=== PATIENT | male | born 1990 | race Caucasian/White ===

== ENCOUNTER 2018-12-15 12:16 | Inpatient (IN) | payer OTHER ==
--- NOTE | 2018-12-15 12:31 | ED PDOC ---
Arrival/HPI - General Chief Complaint: Weakness/Neurological Deficit Historian: EMS - History of Present Illness Narrative History of Present Illness (Text): 12/15/18 12:24 28 year old M with h/o of Factor V Leiden deficiency (Eliquis), PE, DVT presents via EMS complaining of left arm weakness, left facial droop, drooling and slurred speech 20 minutes prior to arrival. Per EMS, patient mentioned "feeling funny" for the past week. Per the patient's mother, the patient has similar presentation last week at [facility] where CTH was unremarkable and he was discharged and advised to continue taking his Eliquis as prescribed. PCP: Dr. Lopez Time/Duration: Prior to Arrival Symptom Onset: Sudden Symptom Course: Unchanged Activities at Onset: Light Context: Home Past Medical History - Provider Review Nursing Documentation Reviewed: Yes - Travel History Have you recently traveled outside [place] w/in the past 3 mons?: No - Infectious Disease Hx of Infectious Diseases: None - Tetanus Immunization Tetanus Immunization: Unknown - Hematological/Oncological Other/Comment: DVT left leg, Factor V. - Musculoskeletal/Rheumatological Hx Falls: No - Psychiatric Hx Depression: No Hx Emotional Abuse: No Hx Physical Abuse: No Hx Substance Use: (Smokes marijuana occasionaly) - Past Surgical History Past Surgical History: No Previous - Surgical History Hx Tonsillectomy: Yes - Anesthesia Hx Anesthesia: Yes Hx Anesthesia Reactions: No Hx Malignant Hyperthermia: No - Suicidal Assessment Feels Threatened In Home Enviroment: No Family/Social History - Physician Review Nursing Documentation Reviewed: Yes Family/Social History: Unknown Family HX Smoking Status: Current Some Days Smoker Hx Alcohol Use: Yes (Socially) Hx Substance Use: (Smokes marijuana occasionaly) Substance used: CANNABIS Hx Substance Use Treatment: No Allergies/Home Meds Allergies/Adverse Reactions: Allergies Penicillins Allergy (Verified 11/10/15 04:38) RASH Home Medications: Home Meds Medication Instructions Recorded Confirmed Apixaban [Eliquis] 2.5 mg PO BID 12/15/18 12/15/18 Review of Systems - Physician Review All systems were reviewed & negative as marked: Yes - Review of Systems Systems not reviewed;Unavailable: Acuity of Condition Constitutional: absent: Fevers ENT: absent: Sore Throat, Rhinorrhea Respiratory: absent: SOB, Cough, Wheezing Cardiovascular: absent: Chest Pain Gastrointestinal: absent: Abdominal Pain, Diarrhea, Nausea, Vomiting Genitourinary Male: absent: Dysuria Musculoskeletal: Other (left arm weakness) Neurological: Facial Droop (left). absent: Headache Physical Exam Vital Signs Reviewed: Yes Temperature: Afebrile Blood Pressure: Normal Pulse: Tachycardic Respiratory Rate: Normal Appearance: Positive for: Well-Appearing, Non-Toxic, Comfortable Pain Distress: Mild Mental Status: Positive for: Alert and Oriented X 3 Finger Stick Blood Glucose: 95 - Systems Exam Head: Present: Atraumatic, Normocephalic Pupils: Present: PERRL Extroacular Muscles: Present: EOMI Conjunctiva: Present: Normal Mouth: Present: Moist Mucous Membranes Neck: Present: Normal Range of Motion Respiratory/Chest: Present: Clear to Auscultation, Good Air Exchange. No: Respiratory Distress, Accessory Muscle Use Cardiovascular: Present: Regular Rate and Rhythm, Normal S1, S2. No: Murmurs Abdomen: No: Tenderness, Distention, Peritoneal Signs Back: Present: Normal Inspection Upper Extremity: Present: Neurovascularly Intact. No: Cyanosis, Edema Lower Extremity: Present: Normal Inspection, Normal ROM. No: Edema Neurological: Present: GCS=15, Other (able to wrinkle both sides of forehead). No: Speech Normal (slurred speech w/drooling noted towards left side of mouth), Motor Func Grossly Intact (4/5 strength in RUE, 1/5 strength in LUE, RLE & LLE 5/5 motor strength) Skin: Present: Warm, Dry, Normal Color. No: Rashes Psychiatric: Present: Alert, Oriented x 3, Normal Insight, Normal Concentration Medical Decision Making ED Course and Treatment: 12/15/18 12:31 Impression: 28 year old M presents via EMS complaining of left arm weakness, left facial droop w/drool and slurred speech prior to arrival. EMS reports arrival 20 mins prior to symptoms and blood glucose level of 99 on field. Per EMS, patient mentioned "feeling funny" x1week. No current somatic complaints at the moment. NIHSS: 7 tPA Eligible: NO Plan: -- Labs --CTA --CTH --IVF --EKG --UA --Aspirin --MRI --Echo w/ bubble study --Zofran --Stroke team consult -- Reassess and disposition Prior Visits: Notes and results from previous visits were reviewed. Patient was last seen in the emergency department on Progress Notes: 12/15/18 12:40 Code Stroke called. CTH reviewed with visualized area of ischemia seen on R frontal temporal region. Discussed case with Dr. Booth(neurology) who states patient is NOT a candidate for tPA. She requests for CTA to be performed. 12/15/18 14:[address] Lopez(PCP) who accepts patient under his care. - Critical Care Critical Care Minutes: 60 minutes - Lab Interpretations Lab Results: 12/15/18 12:42 12/15/18 12:42 Lab Results 12/15/18 14:11: Blood Type Confirm B POSITIVE 12/15/18 13:38: Blood Type B POSITIVE, Antibody Screen Negative, BBK History Checked No verified bt 12/15/18 12:42: Sodium 142, Potassium 4.3, Chloride 104, Carbon Dioxide 25, Anion Gap 17, BUN 15, Creatinine 0.8, Est GFR ( Amer) > 60, Est GFR (Non- Af Amer) > 60, Random Glucose 101, Calcium 9.5, Total Bilirubin 0.9, AST 32, ALT 45, Alkaline Phosphatase 83, Troponin I < 0.01, NT-Pro-B Natriuret Pep 55.4, Total Protein 8.2, Albumin 4.6, Globulin 3.5, Albumin/Globulin Ratio 1.3, Triglycerides 127, Cholesterol 161, LDL Cholesterol Direct 71, HDL Cholesterol 50 12/15/18 12:42: PT 15.2 H, INR 1.35, APTT 44.4 H 12/15/18 12:42: WBC 7.1, RBC 5.93, Hgb 15.5, Hct 46.9, MCV 79.1 L, MCH 26.1, MCHC 33.0, RDW 13.4, Plt Count 190, MPV 10.4, Neut % (Auto) 52.2, Lymph % (Auto) 38.0 H, Benson % (Auto) 5.7, Eos % (Auto) 3.8, Baso % (Auto) 0.3, Lymph # (Auto) 2.7, Benson # (Auto) 0.4, Eos # (Auto) 0.3, Baso # (Auto) 0.02, Absolute Neuts (auto) 3.68 12/15/18 12:19: Hemoglobin A1c 5.5 I have reviewed the lab results: Yes - RAD Interpretation Narrative RAD Interpretations (Text): 12/15/18 14:10 Chest X-ray No active disease 12/15/18 18:25 Head/ Neck CTA --Normal CT Angiography of the neck CT Angiography of the brain -- Unremarkable CT Angiography of the brain Radiology Orders: 12/15/18 12:18 HEAD W/O (CODE STROKE) [CT] Stat 12/15/18 12:19 CHEST PORTABLE [RAD] Stat Leach Tank Tender: Radiologist - EKG Interpretation EKG Interpretation (Text): 12/15/18 12:34 Sinus tachycardia @ [address] elevations. No T wave inversions. Interpreted by ED Physician: Yes Type: 12 lead EKG - Medication Orders Current Medication Orders: Sodium Chloride (Sodium Chloride 0.9%) 1,000 mls @ 100 mls/hr IV .Q10H CATARINO rTPA Inclusion/Exclusion - Refusal of Treatment Patient Refused Treatment: No - Exclusion Criteria for Altepase Current Intracranial Hemorrhage: No Subarachnoid hemorrhage: No Active Internal Bleeding: No Recent (within 3 months) Intracranial or Intraspinal Surgery: No Presence of intracranial conditions that may increase the risk of bleeding: Not Applicable Current Severe Uncontrolled Hypertension: No - Warning to TPA With Conditions Condition: Patients currently receiving anticoagulants (On Eliquis) NIHSS Stroke Scale 3 - Date/Time Evaluation Performed Date Performed: 12/15/18 Time Performed: 12:15 When Was NIHSS Performed: Baseline - How Severe is the Stroke Level of Consciousness: 0=Alert LOC to Questions: 0=Both comments correct LOC to commands: 0=Obeys both correctly Visual: 0=No visual loss Facial: 2=Partial (lower face paralysis) Motor Arm - Left: 3=No effort against gravity (falls immediately) Motor Arm - Right: 0=No drift Motor Leg - Left: 0=No drift Motor Leg - Right: 0=No drift Limb Ataxia: 0=Absent Sensory: 0=Normal Best Language: 1=Mild to moderate aphasia Dysarthia: 1=Mild to moderate slurring Extinction & Inattention (Neglect): 0=Normal, no object - Scribe Statement The provider has reviewed the documentation as recorded by the Nataly Britt All medical record entries made by the Serenaiblatoya were at my direction and personally dictated by me. I have reviewed the chart and agree that the record accurately reflects my personal performance of the history, physical exam, medical decision making, and the department course for this patient. I have also personally directed, reviewed, and agree with the discharge instructions and disposition. Disposition/Present on Arrival - Present on Arrival Any Indicators Present on Arrival: Yes History of DVT/PE: Yes History of Uncontrolled Diabetes: No Urinary Catheter: No History Surgical Site Infection Following: None - Disposition Have Diagnosis and Disposition been Completed?: Yes Diagnosis: CVA (cerebral vascular accident) Disposition: HOSPITALIZED Disposition Time: 14:30 Patient Plan: Admission Patient Problems: Current Active Problems Problem Status Onset CVA (cerebral vascular accident) Acute Condition: GUARDED
--- NOTE | 2018-12-15 12:56 | CT ---
Date of service: 12/15/2018 PROCEDURE: CT HEAD WITHOUT CONTRAST. HISTORY: code stroke COMPARISON: 11/10/2015 TECHNIQUE: Axial computed tomography images were obtained through the head/brain without intravenous contrast. Radiation dose: Total exam DLP = 789.26 mGy-cm. This CT exam was performed using one or more of the following dose reduction techniques: Automated exposure control, adjustment of the mA and/or kV according to patient size, and/or use of iterative reconstruction technique. FINDINGS: HEMORRHAGE: No intracranial hemorrhage. BRAIN: There is an area of hypodensity in the right parietal and posterior temporal lobe consistent with an acute or subacute infarct. This measures 2.5 x 5 cm. There is no evidence of hemorrhage. Findings were discussed with Dr. Kovacs at 12:50 p.m. VENTRICLES: Unremarkable. No hydrocephalus. CALVARIUM: Unremarkable. PARANASAL SINUSES: Unremarkable as visualized. No significant inflammatory changes. MASTOID AIR CELLS: Unremarkable as visualized. No inflammatory changes. OTHER FINDINGS: None. IMPRESSION: There is an area of hypodensity in the right parietal and posterior temporal lobe consistent with an acute or subacute infarct. This measures 2.5 x 5 cm. There is no evidence of hemorrhage. Findings were discussed with Dr. Kovacs at 12:50 p.m.
[2018-12-15 13:03] LABS: BASO # 0.02 K/mm3 (0.0-2.0); BASO % 0.3 % (0.0-3.0); EOS # 0.3 (0.0-0.7); EOS % 3.8 % (1.5-5.0); HEMOGLOBIN 15.5 g/dL (14.0-18.0); LYMPH # 2.7 (1.2-3.4); MEAN CELL VOLUME 79.1 fl (80.0-105.0); MEAN CORPUSCULAR HEMOGLOBIN 26.1 pg (25.0-35.0); MEAN PLATELET VOLUME 10.4 fl (7.0-11.0); MONO # 0.4 (0.1-0.6); MONO % 5.7 % (1.0-6.0); RBC 5.93 10^6/uL (3.5-6.1); RED CELL DISTRIBUTION WIDTH 13.4 % (11.5-14.5); WHITE BLOOD COUNT 7.1 10^3/uL (4.5-11.0)
[2018-12-15 13:07] LABS: INR 1.35; PARTIAL THROMBOPLASTIN TIME 44.4 Seconds (26.9-38.3); PROTHROMBIN TIME 15.2 SECONDS (9.4-12.5)
[2018-12-15] MEDS ORDERED: Iohexol 350 MG/100 ML VIAL ONE (13:11)
[2018-12-15] MEDS: Sodium Chloride 0.9% 1,000 ML IV SCH ×2 (13:12→22:30)
[2018-12-15 13:16] LABS: ALB/GLOB RATIO 1.3 (1.1-1.8); ALBUMIN 4.6 g/dL (3.0-4.8); BLOOD UREA NITROGEN 15 mg/dL (7-21); CALCIUM 9.5 mg/dL (8.4-10.5); GFR NON-AFRICAN AMERICAN > 60; HDL CHOLESTEROL 50 mg/dL (29-60)
[2018-12-15 13:18] LABS: ALT/SGPT 45 U/L (7-56); AST/SGOT 32 U/L (17-59)
[2018-12-15 13:27] LABS: LDL CHOLESTEROL 71 mg/dL (0-129)
[2018-12-15 13:30] LABS: B-TYPE NATRIURETIC PEPTIDE 55.4 pg/mL (0-450); TROPONIN I < 0.01 ng/mL
--- NOTE | 2018-12-15 13:55 | RAD ---
Date of service: 12/15/2018 HISTORY: Code Stroke COMPARISON: 04/06/2012 TECHNIQUE: 1 view obtained. FINDINGS: LUNGS: No active pulmonary disease. PLEURA: No significant pleural effusion identified, no pneumothorax apparent. CARDIOVASCULAR: No aortic atherosclerotic calcification present. Normal cardiac size. No pulmonary vascular congestion. OSSEOUS STRUCTURES: No significant abnormalities. VISUALIZED UPPER ABDOMEN: Normal. OTHER FINDINGS: None. IMPRESSION: No active disease.
--- NOTE | 2018-12-15 16:24 | CT ---
Date of service: 12/15/2018 PROCEDURE: CT Angiography of the neck with contrast HISTORY: left sided weakness w/ R sided ischemia COMPARISON: None. TECHNIQUE: Contiguous axial images of the neck were obtained from the level of the skull-base to the superior mediastinum in the arteriographic phase of enhancement. Coronal and sagittal reformats or also generated. IV contrast dose: Radiation dose: Total exam DLP = 488.2 mGy-cm. This CT exam was performed using one or more of the following dose reduction techniques: Automated exposure control, adjustment of the mA and/or kV according to patient size, and/or use of iterative reconstruction technique. FINDINGS: RIGHT CAROTID ARTERIES: Common Carotid Artery: Normal. Carotid Bifurcation: Normal. Internal Carotid Artery:Normal. External Carotid Artery (proximal branches): Normal. LEFT CAROTID ARTERIES: Common Carotid Artery: Normal. Carotid Bifurcation: Normal. Internal Carotid Artery:Normal. External Carotid Artery (proximal branches): Normal. VERTEBRAL ARTERIES: Right Vertebral Artery: Normal. Left Vertebral Artery: Normal. OTHER FINDINGS: no aortic atherosclerotic calcification or mural plaque present. IMPRESSION: Normal CT Angiography of the neck. CT Angiography of the Brain. HISTORY: left sided weakness w/ R sided ischemia COMPARISON: None available. TECHNIQUE: CT angiography of the intracranial arteries was performed. Coronal and sagittal maximum intensity projection reformated images were generated. Radiation dose: Total exam DLP = 488.2 mGy-cm. This CT exam was performed using one or more of the following dose reduction techniques: Automated exposure control, adjustment of the mA and/or kV according to patient size, and/or use of iterative reconstruction technique. FINDINGS: INTERNAL CEREBRAL ARTERIES: Unremarkable. The skull base, petrous, cavernous and supraclinoid segments are bilaterally widely patent. ANTERIOR CEREBRAL ARTERIES: Unremarkable. A1 and A2 segments are widely patent. Smaller distal branches unremarkable, as visualized. MIDDLE CEREBRAL ARTERIES: Unremarkable. M1 and M2 segments are widely patent. Perisylvian branches grossly symmetric. POSTERIOR CIRCULATION: Basilar Artery: Unremarkable. Distal Vertebral Arteries: Unremarkable. Posterior Cerebral Arteries: Unremarkable. Posterior Inferior Cerebellar Arteries: Unremarkable. ANEURYSM/ VASCULAR MALFORMATIONS: None. OTHER FINDINGS: None. IMPRESSION: Unremarkable CT Angiography of the Brain.
--- NOTE | 2018-12-15 16:46 | CARD ---
APPROVED REPORT Date of service: 12/15/2018 EKG Measurement Heart [id number] <Conclusion> Sinus tachycardia Otherwise normal ECG
[2018-12-15 19:32] LABS: BARBITURATES, UR NEGATIVE (NEGATIVE); BENZODIAZEPINES, UR NEGATIVE (NEGATIVE); OPIATES, UR NEGATIVE (NEGATIVE); PHENCYCLIDINE, UR NEGATIVE (NEGATIVE)
[2018-12-15 22:35] VITALS: BMI 31.8
[2018-12-15] MEDS ORDERED: Pneumococcal 23-Valent Vaccine IM ONE (22:35)
--- NOTE | 2018-12-15 23:01 | CP.PCM.PCO ---
Physician Communication Note - Physician Communication Note Physician Communication Note: Called for code stroke but patient on eloquiss so not tpa candidate.
[2018-12-16] MEDS: Sodium Chloride 0.9% 1,000 ML IV SCH ×2 (01:00→21:55)
--- NOTE | 2018-12-16 03:13 | CON ---
DATE: 12/15/2018 TYPE OF CONSULT: Cardiology. REASON FOR CONSULTATION: Cardiac evaluation admitted with TIA/stroke, on Eliquis. BRIEF CLINICAL HISTORY: This is a 28-year-old male with past medical history significant for DVT, PE, factor V Leiden deficiency, came in with complaints of weakness, left facial droop, and slurred speech 20 minutes prior to arrival to the emergency room. The patient had a similar complaint for the past week. As per mother, the patient had similar presentation at [facility] where CAT scan was unremarkable, he was discharged and he continued taking Eliquis. On arrival to the [facility], code stroke was activated and neuro hospitalist was consulted, but since the patient is on Eliquis, it was thought to be not a candidate for TPA, so TPA was not given. Currently, the patient is on the way to 2R from ER. Denies any chest pain. Denies any shortness of breath. Denies any palpitations. Apparently, it looks like symptoms resolved. The patient states he has a funny sensation at that time. PAST MEDICAL HISTORY: Significant for TIA type of symptoms last week and history of factor V Leiden deficiency, on Eliquis and history of PE and DVT in the past. SOCIAL HISTORY: Denies smoking. Denies any history of alcohol abuse. CURRENT MEDICATIONS: The patient is taking at home Eliquis 2.5 mg p.o. b.i.d. and tramadol 50 mg q.i.d. REVIEW OF SYSTEMS: As per HPI. PHYSICAL EXAMINATION: VITAL SIGNS: Height of the patient 5 feet 9 inches, weight of the patient 215 pounds, and body mass index 35 kg/m2. Temperature afebrile, heart rate 110, and blood pressure 128/75. HEENT: PERRLA. Extraocular muscles intact. NECK: Supple. No carotid bruits or thyromegaly. CHEST: Clear to auscultation. HEART: S1 and S2 regular. ABDOMEN: Soft. EXTREMITIES: Clubbing and cyanosis negative. LABORATORY DATA: EKG showed normal sinus tachycardia, heart rate of 113. Blood workup as follows; WBC 7, hemoglobin 15, hematocrit 46.9, and platelet count of 190. Coagulation profile, INR 1.35. Sodium 140, potassium 4.3, chloride 104, carbon dioxide 25, anion gap of 17, BUN 15, and creatinine 0.8. Troponin is 0.05. IMPRESSION: A 28-year-old male with past medical history significant for factor V Leiden deficiency, history of deep venous thrombosis and pulmonary embolism, on Eliquis 2.5 mg, admitted with transient ischemic attack type of symptoms. Initial CAT scan of the head was negative for bleed, but there is an hypodense area in the right parietal and posterior temporal lobe consistent with acute or subacute infarct, this measures 2.5 to 5 cm. No evidence of hemorrhage. Neuro hospitalist contacted for TPA, but thought because Eliquis is not given. Cardiology consult was called for evaluation of tachycardia and the patient's Eliquis for recurrent stroke. RECOMMENDATIONS: We will do a bubble study to rule out any PFO. Also, please note, we will discuss with corporate webmaster because the patient is subtherapeutic, the patient has body mass index of 35 kg/m2 and normal renal function, so, it is not sure if it is 2.5 is protecting the patient or giving a false sense of security. The second issue since the factor V Leiden deficiency, I am not sure how much the Eliquis even if therapeutic dose is given for protection. If not, then switch over to Coumadin or at least give 5 mg p.o. b.i.d. We will discuss with Hematology tomorrow. We will add baby aspirin 81 mg daily and Lopressor 25 mg p.o. b.i.d. Lipid profile, TSH, and hemoglobin A1c. Further recommendations depending upon the hospital course. We will follow with you. Thank you Dr. Lopez for providing us the opportunity in taking care of the patient, Cherry Mendieta. Serg Retana MD
[2018-12-16] MEDS ORDERED: DiphenhydrAMINE 50 mg/ml Inj IVP ONE ×2 (03:39→23:41)
--- NOTE | 2018-12-16 03:48 | CP.PCM.PN ---
Subjective - Date & Time of Evaluation Date of Evaluation: 12/16/18 Time of Evaluation: 03:47 - Subjective Subjective: Patient was seen at bedside. Has no complaints now. Had head ache earlier. Medical record was reviewed. This 28 year old male was admitted acute CVA , left sided weakness. Has PMH of hypercoaguable state,PE,DVT,Leiden factory deficiency, anxiety. Tylenol was ordered for headache. Objective - Vital Signs/Intake and Output Vital Signs (last 24 hours): Temp Pulse Resp BP Pulse Ox 97.9 F 83 16 102/65 98 12/16/18 00:01 12/16/18 02:00 12/16/18 00:01 12/16/18 00:01 12/16/18 00:01 - Medications Medications: Current Medications Apixaban (Eliquis) 5 mg PO Q12 CATARINO; Protocol Last Admin: 12/15/18 22:24 Dose: 5 mg Sodium Chloride (Sodium Chloride 0.9%) 1,000 mls @ 100 mls/hr IV .Q10H CATARINO Last Admin: 12/15/18 13:12 Dose: 100 mls/hr Pantoprazole Sodium (Protonix Inj) 40 mg IVP DAILY CATARINO - Labs Labs: 12/15/18 12:42 12/15/18 12:42 PT 15.2 SECONDS (9.4-12.5) H 12/15/18 12:42 INR 1.35 12/15/18 12:42 APTT 44.4 Seconds (26.9-38.3) H 12/15/18 12:42 - Constitutional Appears: Well, No Acute Distress - Head Exam Head Exam: ATRAUMATIC, NORMAL INSPECTION, NORMOCEPHALIC - Eye Exam Eye Exam: Normal appearance - ENT Exam ENT Exam: Normal External Ear Exam - Neck Exam Neck Exam: Normal Inspection - Respiratory Exam Respiratory Exam: NORMAL BREATHING PATTERN - Cardiovascular Exam Cardiovascular Exam: absent: JVD - GI/Abdominal Exam GI & Abdominal Exam: absent: Distended - Rectal Exam Rectal Exam: Deferred - Exam Additional comments: Deferred. - Extremities Exam Extremities Exam: Normal Inspection - Back Exam Back Exam: NORMAL INSPECTION - Neurological Exam Neurological Exam: Alert, Awake - Psychiatric Exam Psychiatric exam: Normal Affect, Normal Mood - Skin Skin Exam: Normal Color Assessment and Plan - Assessment and Plan (Free Text) Assessment: Headache. Hypercoaguable state. Acute CVA. Left sided weakness. History PE History DVT History Leiden factor deficiency. Obesity. Plan: Tylenol 650 mg PO X 1. Continue present management.
[2018-12-16 06:32] LABS: BASO # 0.02 K/mm3 (0.0-2.0); BASO % 0.2 % (0.0-3.0); EOS # 0.2 (0.0-0.7); EOS % 2.5 % (1.5-5.0); HEMOGLOBIN 13.8 g/dL (14.0-18.0); LYMPH # 3.2 (1.2-3.4); MEAN CELL VOLUME 79.2 fl (80.0-105.0); MEAN CORPUSCULAR HEMOGLOBIN 25.6 pg (25.0-35.0); MEAN CORPUSCULAR HGB CONC 32.3 g/dl (31.0-37.0); MEAN PLATELET VOLUME 10.4 fl (7.0-11.0); MONO # 0.7 (0.1-0.6); MONO % 8.3 % (1.0-6.0); RBC 5.39 10^6/uL (3.5-6.1); RED CELL DISTRIBUTION WIDTH 13.6 % (11.5-14.5); WHITE BLOOD COUNT 8.7 10^3/uL (4.5-11.0)
[2018-12-16 07:09] LABS: ALB/GLOB RATIO 1.3 (1.1-1.8); ALBUMIN 4.1 g/dL (3.0-4.8); ALT/SGPT 41 U/L (7-56); AST/SGOT 31 U/L (17-59); BLOOD UREA NITROGEN 13 mg/dL (7-21); CALCIUM 9.1 mg/dL (8.4-10.5); GFR NON-AFRICAN AMERICAN > 60
--- NOTE | 2018-12-16 07:45 | CP.PCM.PN ---
Subjective - Date & Time of Evaluation Date of Evaluation: 12/16/18 Time of Evaluation: 06:25 - Subjective Subjective: Awake, no distress Reason for consultation and follow up:Cardiac evaluation, admitted for stroke, on Eliquis, history of Factor V Leiden deficiency, DVT Seen and examined by me and Dr. Retana Objective - Vital Signs/Intake and Output Vital Signs (last 24 hours): Temp Pulse Resp BP Pulse Ox 98.0 F 80 16 119/84 98 12/16/18 06:00 12/16/18 06:00 12/16/18 06:00 12/16/18 06:00 12/16/18 06:00 Intake and Output: 12/16/18 12/16/18 06:59 18:59 Intake Total 400 Output Total 1000 Balance -600 - Medications Medications: Current Medications Apixaban (Eliquis) 5 mg PO Q12 CATARINO; Protocol Last Admin: 12/15/18 22:24 Dose: 5 mg Sodium Chloride (Sodium Chloride 0.9%) 1,000 mls @ 100 mls/hr IV .Q10H CATARINO Last Admin: 12/16/18 01:00 Dose: 100 mls/hr Pantoprazole Sodium (Protonix Inj) 40 mg IVP DAILY CATARINO - Labs Labs: 12/16/18 06:00 12/16/18 06:00 PT 15.2 SECONDS (9.4-12.5) H 12/15/18 12:42 INR 1.35 12/15/18 12:42 APTT 44.4 Seconds (26.9-38.3) H 12/15/18 12:42 - Constitutional Appears: Non-toxic, No Acute Distress - Head Exam Head Exam: NORMAL INSPECTION, NORMOCEPHALIC - Eye Exam Eye Exam: Normal appearance - ENT Exam ENT Exam: Mucous Membranes Dry - Respiratory Exam Respiratory Exam: Decreased Breath Sounds, Clear to Ausculation Bilateral, NORMAL BREATHING PATTERN - Cardiovascular Exam Cardiovascular Exam: REGULAR RHYTHM, +S1, +S2 - GI/Abdominal Exam GI & Abdominal Exam: Soft, Normal Bowel Sounds - Extremities Exam Extremities Exam: Full ROM, Normal Capillary Refill - Neurological Exam Neurological Exam: Alert, Awake Additional comments: left facial droop slight slurred speech - Psychiatric Exam Psychiatric exam: Normal Affect, Normal Mood - Skin Skin Exam: Dry, Normal Color Assessment and Plan - Assessment and Plan (Free Text) Assessment: A 28 years old male who came in to the ER due to complaining of left arm weakness, left facial droop, drooling and slurred speech 20 minutes prior to arrival.Per the patient's mother, the patient has similar presentation last week at [facility] where CT scan of head was unremarkable and was discharged and to continue Eliquis. History of Factor V Leiden deficiency ( on Eliquis), pulmonary embolism, DVT, TIA. Cardiac consult was called for evaluation of tachycardia and Eliquis for recurrent stroke.CT scan of head showed there is an area of hypodensity in the right parietal and posterior temporal lobe consistent with acute or sub acute infarct.This measures 2.5cm to 5cm. No evidence of hemorrhage. Neurologis was called but no TPA given. patient in on Eliquis. For MRI of brain today. As suggested will keep SBP aboutt 180 to neuro perfuse. Plan: No distress Heart rate controlled Maintain SBP 180's for neuro perfusion Continue current treatment Eliquis increased to 5 mg BID Hematology on consult For Echo to evaluate thrombus and LV function For MRI of brain today Neuro checks Will follow up Plan and treatment discussed with Dr. Retana
--- NOTE | 2018-12-16 08:18 | HP ---
DATE OF EXAM: 12/15/2018 REASON FOR ADMISSION: Left-sided weakness. HISTORY OF PRESENT ILLNESS: This is a 28-year-old male with history of hypercoagulable state on Eliquis, history of PE, DVT in the past, for the last 2 to 3 years has been on Eliquis. The patient complained today of after he took a shower he called his mother because he felt his left facial drooped left side, feeling funny, and his mother brought him to the emergency room 20 minute after these symptoms. The patient denied any chest pain, any short of breath, any nausea, or vomiting. He also noted his left arm kind of weak.also he complained of left side headach for [address] [facility] had ct head which was negative PAST MEDICAL HISTORY: As I mentioned above, history of PE, DVT a few years ago, was diagnosed at [facility], being followed by farmworker animal who diagnosed him with factor V Leiden deficiency, has been on Eliquis since then. The patient is compliant with taking 5 mg twice a day. The patient also had a history of anxiety, he always stands at work, but he does not take any medicines. No history of cardiac disease. No hypertension. No other medical problems. ALLERGY: HE IS ALLERGIC TO PENICILLIN. SOCIAL HISTORY: He does not smoke, he did quit smoking a few years ago. No drinking, he quit that a few years ago. Denied using any drugs. He lives with his mother. He is not . He works in a company for [employer]. FAMILY HISTORY: Noncontributory. REVIEW OF SYSTEMS: As above, nothing specific in terms of back pain, shoulder pain, and otherwise the rest of review of systems are negative. PHYSICAL EXAMINATION VITAL SIGNS: Temperature 98.7, heart rate 110, blood pressure 128/75, respirations 19, saturation 99%. HEAD AND NECK: Normal. No JVD. No thyromegaly except left facial droop and absent gag reflex. CHEST: Clear. CARDIAC: First sound and second sound normal. Regular. ABDOMEN: Soft and nontender. EXTREMITIES: No edema. NEUROLOGIC: The patient has left facial droop, absent gag reflex. The patient moves his left upper extremity and he is opening his hand closed. He has left shoulder weakness of 4/5. His strength in the left lower extremity is good but mild weakness of 4/5. LABORATORY DATA: White count 7.1, hemoglobin 15.5, hematocrit 46.9, platelet is 190. The patient had a chemistry also, which shows sodium 142, potassium 4.3, chloride 104, bicarb 25, BUN 15, creatinine 0.8, blood sugar 120, and phosphorous 4.8, magnesium 1.8, total CK is 2424. LDL cholesterol 50. Troponin is negative. Pro-BNP is 55.4. Liver function test is normal. The patient had a CT of the brain shows acute infarction in the parietal area and it shows there is an area of hypodensity in the right parietal and posterior temporal consistent with acute or subacute infarction, it measured 2.5 x 5 cm, no evidence of hemorrhage. CT angiogram was negative for any unusual blockage. Electrocardiogram is sinus rhythm. IMPRESSION AND PLAN: Acute cerebrovascular accident with left-sided weakness with facial droop and diminished gag reflex. We will keep the patient n.p.o., IV fluid. Continue Eliquis 5 mg b.i.d. as the patient has been taking it, he took the first dose in the morning at 10 a.m., second dose will be at 10 p.m. The patient also got aspirin rectal suppository as recommended by the neurologist neuro-hospitalist on-call. I discussed with her and she reviewed the case with the ER physician also. The patient is not a candidate for tPA or thrombolytic therapy because of being on Eliquis and the CT shows hyperdense area already on the CT. The patient also had a CT angiogram, which shows no evidence of any unusual arterial occlusions, which does not need any intervention at this moment, so we recommend medical therapy. We will follow up clinically. We are also going to get a Cardiology consult for possible underlying cardiac issue like atrial septal defect or we are going to get Dr. Jefferson of Hematology/Oncology consult to review the issue of hypercoagulable state and recurrent stroke while being on Eliquis. At this time, we will continue current therapy. We are going to consult physical therapy, occupational therapy, speech therapist and we will do swallow evaluations. We will keep the patient n.p.o. Continue current therapy. We will give gastrointestinal prophylaxis and we will review the case in the morning. I discussed the case with the patient and the family, the mother of the son and the father, all were around the patient and all questions have been answered. Rudolph Lopez MD MTDStefan
--- NOTE | 2018-12-16 08:20 | CP.PCM.CON ---
<Ramón Rodrigues - Last Filed: 12/16/18 15:39> History of Present Illness - History of Present Illness History of Present Illness: Ramón Rodrigues DO, PGY-2: Neurology Progress Note for Dr. Johnson 28 year old male with a past medical history of Factor V Leiden mutation, DVT (18 years of age), PE on Eliquis who presented with sudden onset left sided weakness and slurred speech yesterday. He reports that he was at home and went upstairs to use the restroom and developed slurred speech and felt disoriented like he was going to fall into the vanity of the bathroom. His mother called EMS. He was brought in and a code stroke was called given his slurred speech and left sided weakness. Patient was not a candidate for tPA because he is actively taking takes Eliquis. He reports going to to [facility] ED in [place] a week or so ago for a right sided headache at which point in time he obtained a head CT which was negative for stroke. He reports since that time he has stopped driving because of difficulty assessing how far cars are from him. He reports the ability to chew, but feels uncoordinated at it. yesterday, he reports drooling and being unable to talk. Otherwise, a 12 point ROS is negative except as mentioned herein. PMH: Factor V Leiden Mutation, DVT, PE; Patient is unaware of if he a functional factor V leiden deficiency or is a homozygote or heterozygote PSH: Tonsillectomy when child Allergies: Penicillin Social: Works in retail for [employer], denies alcohol, tobacco, or illicit drug use PMD: Dr. Lopez Review of Systems - Review of Systems All systems: reviewed and no additional remarkable complaints except (as per HPI) Past Patient History - Infectious Disease Hx of Infectious Diseases: None - Tetanus Immunizations Tetanus Immunization: Unknown - Past Social History Smoking Status: Never Smoked - CARDIAC Hx Cardiac Disorders: Yes (pericarditis) Other/Comment: dvt left leg, blood clot both lungs 06/21/17, pt has factor V leiden - PULMONARY Hx Respiratory Disorders: Yes Other/Comment: blood clot both lungs 06/21/17 - NEUROLOGICAL Hx Neurological Disorder: No - HEENT Hx HEENT Problems: No - RENAL Hx Chronic Kidney Disease: No - ENDOCRINE/METABOLIC Hx Endocrine Disorders: No - HEMATOLOGICAL/ONCOLOGICAL Hx Blood Disorders: Yes Other/Comment: DVT left leg, Factor V. leiden - INTEGUMENTARY Hx Dermatological Problems: No - MUSCULOSKELETAL/RHEUMATOLOGICAL Hx Falls: No - GASTROINTESTINAL Hx Gastrointestinal Disorders: No - GENITOURINARY/GYNECOLOGICAL Hx Genitourinary Disorders: No - PSYCHIATRIC Hx Substance Use: (pt denies substance use) - SURGICAL HISTORY Hx Surgeries: Yes (tonsillectomy) - ANESTHESIA Hx Anesthesia: Yes Hx Anesthesia Reactions: No Hx Malignant Hyperthermia: No Meds Allergies/Adverse Reactions: Allergies Allergy/AdvReac Type Severity Reaction Status Date / Time Penicillins Allergy RASH Verified 11/10/15 04:38 - Medications Medications: Current Medications Apixaban (Eliquis) 5 mg PO Q12 [facility]; Protocol Last Admin: 12/15/18 22:24 Dose: 5 mg Sodium Chloride (Sodium Chloride 0.9%) 1,000 mls @ 100 mls/hr IV .Q10H [facility] Last Admin: 12/16/18 01:00 Dose: 100 mls/hr Pantoprazole Sodium (Protonix Inj) 40 mg IVP DAILY [facility] Physical Exam - Constitutional Appears: No Acute Distress - Head Exam Head Exam: ATRAUMATIC, NORMOCEPHALIC - Eye Exam Eye Exam: EOMI, Normal appearance Pupil Exam: NORMAL ACCOMODATION - ENT Exam ENT Exam: Mucous Membranes Moist Additional comments: unable to stick out tongue - Respiratory Exam Respiratory Exam: Clear to Auscultation Bilateral, NORMAL BREATHING PATTERN. absent: Accessory Muscle Use - Cardiovascular Exam Cardiovascular Exam: Tachycardia Additional comments: extra heart sounds auscultated, tachycardic, not normal exam - Neurological Exam Neurological exam: Alert, Oriented x3 Additional comments: Patient unable to stick out tongue, difficulty shrugging left shoulder, unable to keep eyes closed when asked to keep arms out and touch nose, left facial palsy , ocular apraxia; patient was unable to keep left arm straight in assessing pronator drift, sensation was intact to soft and sharp touch, lower extremity strength preserved, patient also had difficulty with stereognosis, he could per form serial sevens, could not draw overlapping pentagons Lower extremity 5/5, UE left arm abduction 4/5, - Psychiatric Exam Psychiatric exam: Normal Affect, Normal Mood - Skin Skin Exam: Dry, Intact, Normal Color, Warm Results - Vital Signs Recent Vital Signs: Last Vital Signs Temp 98.0 F 12/16/18 06:00 Pulse 80 12/16/18 06:00 Resp 16 12/16/18 06:00 BP 119/84 12/16/18 06:00 Pulse Ox 98 12/16/18 06:00 - Labs Result Diagrams: 12/16/18 06:00 12/16/18 06:00 Labs: Laboratory Results - last 24 hr 12/15/18 12/15/18 12/15/18 12:19 12:42 12:42 WBC 7.1 RBC 5.93 Hgb 15.5 Hct 46.9 MCV 79.1 L MCH 26.1 MCHC 33.0 RDW 13.4 Plt Count 190 MPV 10.4 Neut % (Auto) 52.2 Lymph % (Auto) 38.0 H Lynn % (Auto) 5.7 Eos % (Auto) 3.8 Baso % (Auto) 0.3 Lymph # (Auto) 2.7 Lynn # (Auto) 0.4 Eos # (Auto) 0.3 Baso # (Auto) 0.02 Absolute Neuts (auto) 3.68 ESR PT 15.2 H INR 1.35 APTT 44.4 H Sodium Potassium Chloride Carbon Dioxide Anion Gap BUN Creatinine Est GFR ( Amer) Est GFR (Non-Af Amer) POC Glucose (mg/dL) Random Glucose Hemoglobin A1c 5.5 Calcium Phosphorus Magnesium Total Bilirubin AST ALT Alkaline Phosphatase Troponin I NT-Pro-B Natriuret Pep Total Protein Albumin Globulin Albumin/Globulin Ratio Triglycerides Cholesterol LDL Cholesterol Direct HDL Cholesterol TSH 3rd Generation Urine Opiates Screen Urine Methadone Screen Ur Barbiturates Screen Ur Phencyclidine Scrn Ur Amphetamines Screen U Benzodiazepines Scrn U Oth Cocaine Metabols U Cannabinoids Screen Blood Type Blood Type Confirm Antibody Screen BBK History Checked 12/15/18 12/15/18 12/15/18 12:42 13:38 14:11 WBC RBC Hgb Hct MCV MCH MCHC RDW Plt Count MPV Neut % (Auto) Lymph % (Auto) Lynn % (Auto) Eos % (Auto) Baso % (Auto) Lymph # (Auto) Lynn # (Auto) Eos # (Auto) Baso # (Auto) Absolute Neuts (auto) ESR PT INR APTT Sodium 142 Potassium 4.3 Chloride 104 Carbon Dioxide 25 Anion Gap 17 BUN 15 Creatinine 0.8 Est GFR ( Amer) > 60 Est GFR (Non-Af Amer) > 60 POC Glucose (mg/dL) Random Glucose 101 Hemoglobin A1c Calcium 9.5 Phosphorus Magnesium Total Bilirubin 0.9 AST 32 ALT 45 Alkaline Phosphatase 83 Troponin I < 0.01 NT-Pro-B Natriuret Pep 55.4 Total Protein 8.2 Albumin 4.6 Globulin 3.5 Albumin/Globulin Ratio 1.3 Triglycerides 127 Cholesterol 161 LDL Cholesterol Direct 71 HDL Cholesterol 50 TSH 3rd Generation Urine Opiates Screen Urine Methadone Screen Ur Barbiturates Screen Ur Phencyclidine Scrn Ur Amphetamines Screen U Benzodiazepines Scrn U Oth Cocaine Metabols U Cannabinoids Screen Blood Type B POSITIVE Blood Type Confirm B POSITIVE Antibody Screen Negative BBK History Checked No verified bt 12/15/18 12/15/18 12/15/18 15:04 19:00 21:12 WBC RBC Hgb Hct MCV MCH MCHC RDW Plt Count MPV Neut % (Auto) Lymph % (Auto) Lynn % (Auto) Eos % (Auto) Baso % (Auto) Lymph # (Auto) Lynn # (Auto) Eos # (Auto) Baso # (Auto) Absolute Neuts (auto) ESR PT INR APTT Sodium Potassium Chloride Carbon Dioxide Anion Gap BUN Creatinine Est GFR ( Amer) Est GFR (Non-Af Amer) POC Glucose (mg/dL) 120 H 106 Random Glucose Hemoglobin A1c Calcium Phosphorus Magnesium Total Bilirubin AST ALT Alkaline Phosphatase Troponin I NT-Pro-B Natriuret Pep Total Protein Albumin Globulin Albumin/Globulin Ratio Triglycerides Cholesterol LDL Cholesterol Direct HDL Cholesterol TSH 3rd Generation Urine Opiates Screen Negative Urine Methadone Screen Negative Ur Barbiturates Screen Negative Ur Phencyclidine Scrn Negative Ur Amphetamines Screen Negative U Benzodiazepines Scrn Negative U Oth Cocaine Metabols Negative U Cannabinoids Screen Negative Blood Type Blood Type Confirm Antibody Screen BBK History Checked 12/16/18 12/16/18 12/16/18 06:00 06:00 06:00 WBC 8.7 D RBC 5.39 Hgb 13.8 L Hct 42.7 MCV 79.2 L MCH 25.6 MCHC 32.3 RDW 13.6 Plt Count 185 MPV 10.4 Neut % (Auto) 52.0 Lymph % (Auto) 37.0 H Lynn % (Auto) 8.3 H Eos % (Auto) 2.5 Baso % (Auto) 0.2 Lymph # (Auto) 3.2 Lynn # (Auto) 0.7 H Eos # (Auto) 0.2 Baso # (Auto) 0.02 Absolute Neuts (auto) 4.53 ESR 12 PT INR APTT Sodium 140 Potassium 3.7 Chloride 104 Carbon Dioxide 27 Anion Gap 13 BUN 13 Creatinine 0.9 Est GFR ( Amer) > 60 Est GFR (Non-Af Amer) > 60 POC Glucose (mg/dL) Random Glucose 94 Hemoglobin A1c Calcium 9.1 Phosphorus 4.0 Magnesium 2.0 Total Bilirubin 0.9 AST 31 ALT 41 Alkaline Phosphatase 86 Troponin I NT-Pro-B Natriuret Pep Total Protein 7.3 Albumin 4.1 Globulin 3.1 Albumin/Globulin Ratio 1.3 Triglycerides Cholesterol LDL Cholesterol Direct HDL Cholesterol TSH 3rd Generation 8.80 H Urine Opiates Screen Urine Methadone Screen Ur Barbiturates Screen Ur Phencyclidine Scrn Ur Amphetamines Screen U Benzodiazepines Scrn U Oth Cocaine Metabols U Cannabinoids Screen Blood Type Blood Type Confirm Antibody Screen BBK History Checked 12/16/18 06:00 WBC Cancelled RBC Cancelled Hgb Cancelled Hct Cancelled MCV Cancelled MCH Cancelled MCHC Cancelled RDW Cancelled Plt Count Cancelled MPV Cancelled Neut % (Auto) Lymph % (Auto) Lynn % (Auto) Eos % (Auto) Baso % (Auto) Lymph # (Auto) Lynn # (Auto) Eos # (Auto) Baso # (Auto) Absolute Neuts (auto) ESR PT INR APTT Sodium Potassium Chloride Carbon Dioxide Anion Gap BUN Creatinine Est GFR ( Amer) Est GFR (Non-Af Amer) POC Glucose (mg/dL) Random Glucose Hemoglobin A1c Calcium Phosphorus Magnesium Total Bilirubin AST ALT Alkaline Phosphatase Troponin I NT-Pro-B Natriuret Pep Total Protein Albumin Globulin Albumin/Globulin Ratio Triglycerides Cholesterol LDL Cholesterol Direct HDL Cholesterol TSH 3rd Generation Urine Opiates Screen Urine Methadone Screen Ur Barbiturates Screen Ur Phencyclidine Scrn Ur Amphetamines Screen U Benzodiazepines Scrn U Oth Cocaine Metabols U Cannabinoids Screen Blood Type Blood Type Confirm Antibody Screen BBK History Checked Assessment & Plan - Assessment and Plan (Free Text) Assessment: 28 year old male with a past medical history of Factor V Leiden mutation, DVT (18 years of age), PE of Eliquis who presnted with one sudden onset left sided weakness and slurred speech yesterday. Patient was not a candidate for tPA due to taking Eliquis. MRI of brain shows large acute infarct in the distribution of the right middle cerebral artery involving the right frontal, temporal and parietal lobes. 1) Acute stroke - MRI reports there is a large acute infarct in the distribution of the right m iddle cerebral artery involving the right frontal, temporal and parietal lobes. The infarct is also visible on T2 and FLAIR images. - Echocardiogram with bubble study - Transesophageal Echocardiogram recommended; this was discussed with Dr. Retana, signal repairer - Avoid giving the patient any blood pressure medications at this time - Repeat CT of head reports there is a large infarct in the distribution of the right middle cerebral artery involving the frontal, temporal and parietal lobes. The distribution is unchanged from the recent MRI. There is no evidence of hemorrhage. - Neuro checks q 1 hour. - dysphagia evaluation. - PT/OT/Speech therapy. - Hematology consulted Dr. Lerner - Patient should at least be on aspirin 325 daily, and Coumadin, but will defer this to hematology at this point Case was reviewed and discussed with attending physician, Dr. Johnson <Brice Johnson - Last Filed: 12/17/18 15:19> Meds - Medications Medications: Current Medications Apixaban (Eliquis) 5 mg PO Q12 [facility]; Protocol Last Admin: 12/17/18 10:47 Dose: 5 mg Aspirin (Aspirin) 325 mg PO DAILY [facility] Last Admin: 12/17/18 10:47 Dose: 325 mg Folic Acid (Folic Acid) 1 mg PO DAILY [facility] Last Admin: 12/17/18 10:47 Dose: 1 mg Sodium Chloride (Sodium Chloride 0.9%) 1,000 mls @ 100 mls/hr IV .Q10H [facility] Last Admin: 12/16/18 21:55 Dose: 100 mls/hr Levothyroxine Sodium (Synthroid) 25 mcg PO 0600 [facility] Pantoprazole Sodium (Protonix Inj) 40 mg IVP DAILY [facility] Last Admin: 12/17/18 10:46 Dose: 40 mg Results - Vital Signs Recent Vital Signs: Last Vital Signs Temp 97.7 F 12/17/18 12:00 Pulse 90 12/17/18 12:00 Resp 18 12/17/18 12:00 BP 138/92 H 12/17/18 12:00 Pulse Ox 98 12/17/18 06:00 - Labs Result Diagrams: 12/16/18 06:00 12/16/18 06:00 Labs: Laboratory Results - last 24 hr 12/16/18 12/17/18 12/17/18 05:00 06:10 12:10 Homocysteine 8.6 Free T4 1.15 TSH 3rd Generation CHASIDY 6 Profile Negative 12/17/18 12:15 Homocysteine Free T4 TSH 3rd Generation 3.65 CHASIDY 6 Profile Assessment & Plan - Assessment and Plan (Free Text) Plan: All medical record entries made by the Resident were at my direction and personally dictated by me. I have reviewed the chart and agree that the record accurately reflects my personal performance of the history, physical exam, medical decision making, and the department course for this patient. I have also personally directed, reviewed, and agree with the discharge instructions and disposition. Mr. 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 We will start stroke workup, including JOSEPHINE, hematology consult and Echo, with PTSTOT. he has classic right parietal symptoms, along with left sided weakness, and neglect, that was occuring several weeks before [place] [facility] [place] I feel that the most recent embolic event was involving the facial homunculus. Dr. johnson Neurology
--- NOTE | 2018-12-16 08:28 | MRI ---
Date of service: 12/15/2018 PROCEDURE: MRI BRAIN WITHOUT CONTRAST HISTORY: stroke COMPARISON: None available. TECHNIQUE: Multiplanar, multisequence MR images of the brain were obtained without intravenous contrast enhancement. FINDINGS: HEMORRHAGE: None DWI: There is a large acute infarct in the distribution of the right middle cerebral artery involving the right frontal, temporal and parietal lobes. The infarct is also visible on T2 and FLAIR images. BRAIN PARENCHYMA: No atrophy or chronic microvascular ischemic changes. VENTRICLES: Unremarkable. No hydrocephalus. CRANIUM: Unremarkable. ORBITS: Grossly unremarkable. PARANASAL SINUSES/MASTOIDS: Clear VASCULAR SYSTEM: Skull base flow voids intact. OTHER FINDINGS: None. IMPRESSION: There is a large acute infarct in the distribution of the right middle cerebral artery involving the right frontal, temporal and parietal lobes. The infarct is also visible on T2 and FLAIR images.
--- NOTE | 2018-12-16 08:36 | CP.PCM.CON ---
<Juan Luis Way - Last Filed: 12/16/18 14:48> History of Present Illness - History of Present Illness History of Present Illness: Juan Luis Way PGY2 Heme/Onc Consult Note for Dr. Jefferson 28 year old male with a past medical history of Factor V Leiden mutation, DVT (18 years of age), PE on Eliquis 5mg BID who presented with sudden onset left sided weakness and slurred speech yesterday. CT Head showed an area of hypodensity in the right parietal and posterior temporal lobe consistent with an acute or subacute infarct, measuring 2.5 x 5 cm. He also states he has a headache and has been requesting Tylenol. Patient said a week ago he has a "migraine" and went to the [facility] ED in [place] obtained a head CT which was negative for stroke. He states his Grocery Department Manager is Dr. Luda Navarro in [facility] and last saw her this past July. He reports compliance to his medications. He denies fever, chills, nausea, vomiting, diarrhea, or visual changes. He admits to some left sided weakness affecting the face and arm. 12 point ROS is negative is except as mentioned above. PMH: Factor V Leiden Mutation, DVT, PE; PSH: Tonsillectomy Allergies: Penicillin Social: Works in retail for [employer], denies alcohol, tobacco, or illicit drug use PMD: Dr. Lopez Grocery Department Manager: Dr. Luda Navarro Review of Systems - Cardiovascular Cardiovascular: absent: Chest Pain, Dyspnea - Respiratory Respiratory: absent: Dyspnea - Gastrointestinal Gastrointestinal: absent: Abdominal Pain, Melena, Nausea, Vomiting - Genitourinary Genitourinary: absent: Change in Urinary Stream - Musculoskeletal Musculoskeletal: absent: Arthralgias, Back Pain, Numbness, Stiffness, Tingling - Integumentary Integumentary: absent: Rash, Sores, Striae, Wounds - Neurological Neurological: Focal Weakness, Headaches, Weakness. absent: Abnormal Speech, Confusion, Convulsions, Disequilibrium, Dizziness, Lack of Coordination, Loss of Vision, Paresthesias, Radicular Pain, Restless Legs, Sensory Deficit, Syncope, Tingling, Tremor, Vertigo - Hematologic/Lymphatic Hematologic: absent: Easy Bleeding, Easy Bruising Past Patient History - Infectious Disease Hx of Infectious Diseases: None - Tetanus Immunizations Tetanus Immunization: Unknown - Past Social History Smoking Status: Never Smoked - CARDIAC Hx Cardiac Disorders: Yes (pericarditis) Other/Comment: dvt left leg, blood clot both lungs 06/21/17, pt has factor V leiden - PULMONARY Hx Respiratory Disorders: Yes Other/Comment: blood clot both lungs 06/21/17 - NEUROLOGICAL Hx Neurological Disorder: No - HEENT Hx HEENT Problems: No - RENAL Hx Chronic Kidney Disease: No - ENDOCRINE/METABOLIC Hx Endocrine Disorders: No - HEMATOLOGICAL/ONCOLOGICAL Hx Blood Disorders: Yes Other/Comment: DVT left leg, Factor V. leiden - INTEGUMENTARY Hx Dermatological Problems: No - MUSCULOSKELETAL/RHEUMATOLOGICAL Hx Falls: No - GASTROINTESTINAL Hx Gastrointestinal Disorders: No - GENITOURINARY/GYNECOLOGICAL Hx Genitourinary Disorders: No - PSYCHIATRIC Hx Substance Use: (pt denies substance use) - SURGICAL HISTORY Hx Surgeries: Yes (tonsillectomy) - ANESTHESIA Hx Anesthesia: Yes Hx Anesthesia Reactions: No Hx Malignant Hyperthermia: No Meds Allergies/Adverse Reactions: Allergies Allergy/AdvReac Type Severity Reaction Status Date / Time Penicillins Allergy RASH Verified 11/10/15 04:38 - Medications Medications: Current Medications Apixaban (Eliquis) 5 mg PO Q12 [facility]; Protocol Last Admin: 12/15/18 22:24 Dose: 5 mg Sodium Chloride (Sodium Chloride 0.9%) 1,000 mls @ 100 mls/hr IV .Q10H [facility] Last Admin: 12/16/18 01:00 Dose: 100 mls/hr Pantoprazole Sodium (Protonix Inj) 40 mg IVP DAILY [facility] Physical Exam - Constitutional Appears: Non-toxic, No Acute Distress - Head Exam Head Exam: ATRAUMATIC, NORMAL INSPECTION, NORMOCEPHALIC - Eye Exam Eye Exam: EOMI, Normal appearance - ENT Exam ENT Exam: Mucous Membranes Moist - Respiratory Exam Respiratory Exam: Clear to Auscultation Bilateral, NORMAL BREATHING PATTERN - Cardiovascular Exam Cardiovascular Exam: REGULAR RHYTHM, +S1, +S2 - GI/Abdominal Exam GI & Abdominal Exam: Normal Bowel Sounds, Soft. absent: Tenderness - Extremities Exam Extremities exam: Positive for: full ROM, pedal pulses present. Negative for: pedal edema - Neurological Exam Neurological exam: Alert, CN II-XII Intact, Oriented x3, Reflexes Normal - Skin Skin Exam: Normal Color, Warm Results - Vital Signs Recent Vital Signs: Last Vital Signs Temp 98.0 F 12/16/18 06:00 Pulse 80 12/16/18 06:00 Resp 16 12/16/18 06:00 BP 119/84 12/16/18 06:00 Pulse Ox 98 12/16/18 06:00 - Labs Result Diagrams: 12/16/18 06:00 12/16/18 06:00 Labs: Laboratory Results - last 24 hr 12/15/18 12/15/18 12/15/18 12:19 12:42 12:42 WBC 7.1 RBC 5.93 Hgb 15.5 Hct 46.9 MCV 79.1 L MCH 26.1 MCHC 33.0 RDW 13.4 Plt Count 190 MPV 10.4 Neut % (Auto) 52.2 Lymph % (Auto) 38.0 H Gordon % (Auto) 5.7 Eos % (Auto) 3.8 Baso % (Auto) 0.3 Lymph # (Auto) 2.7 Gordon # (Auto) 0.4 Eos # (Auto) 0.3 Baso # (Auto) 0.02 Absolute Neuts (auto) 3.68 ESR PT 15.2 H INR 1.35 APTT 44.4 H Sodium Potassium Chloride Carbon Dioxide Anion Gap BUN Creatinine Est GFR ( Amer) Est GFR (Non-Af Amer) POC Glucose (mg/dL) Random Glucose Hemoglobin A1c 5.5 Calcium Phosphorus Magnesium Total Bilirubin AST ALT Alkaline Phosphatase Troponin I NT-Pro-B Natriuret Pep Total Protein Albumin Globulin Albumin/Globulin Ratio Triglycerides Cholesterol LDL Cholesterol Direct HDL Cholesterol TSH 3rd Generation Urine Opiates Screen Urine Methadone Screen Ur Barbiturates Screen Ur Phencyclidine Scrn Ur Amphetamines Screen U Benzodiazepines Scrn U Oth Cocaine Metabols U Cannabinoids Screen Blood Type Blood Type Confirm Antibody Screen BBK History Checked 12/15/18 12/15/18 12/15/18 12:42 13:38 14:11 WBC RBC Hgb Hct MCV MCH MCHC RDW Plt Count MPV Neut % (Auto) Lymph % (Auto) Gordon % (Auto) Eos % (Auto) Baso % (Auto) Lymph # (Auto) Gordon # (Auto) Eos # (Auto) Baso # (Auto) Absolute Neuts (auto) ESR PT INR APTT Sodium 142 Potassium 4.3 Chloride 104 Carbon Dioxide 25 Anion Gap 17 BUN 15 Creatinine 0.8 Est GFR ( Amer) > 60 Est GFR (Non-Af Amer) > 60 POC Glucose (mg/dL) Random Glucose 101 Hemoglobin A1c Calcium 9.5 Phosphorus Magnesium Total Bilirubin 0.9 AST 32 ALT 45 Alkaline Phosphatase 83 Troponin I < 0.01 NT-Pro-B Natriuret Pep 55.4 Total Protein 8.2 Albumin 4.6 Globulin 3.5 Albumin/Globulin Ratio 1.3 Triglycerides 127 Cholesterol 161 LDL Cholesterol Direct 71 HDL Cholesterol 50 TSH 3rd Generation Urine Opiates Screen Urine Methadone Screen Ur Barbiturates Screen Ur Phencyclidine Scrn Ur Amphetamines Screen U Benzodiazepines Scrn U Oth Cocaine Metabols U Cannabinoids Screen Blood Type B POSITIVE Blood Type Confirm B POSITIVE Antibody Screen Negative BBK History Checked No verified bt 12/15/18 12/15/18 12/15/18 15:04 19:00 21:12 WBC RBC Hgb Hct MCV MCH MCHC RDW Plt Count MPV Neut % (Auto) Lymph % (Auto) Gordon % (Auto) Eos % (Auto) Baso % (Auto) Lymph # (Auto) Gordon # (Auto) Eos # (Auto) Baso # (Auto) Absolute Neuts (auto) ESR PT INR APTT Sodium Potassium Chloride Carbon Dioxide Anion Gap BUN Creatinine Est GFR ( Amer) Est GFR (Non-Af Amer) POC Glucose (mg/dL) 120 H 106 Random Glucose Hemoglobin A1c Calcium Phosphorus Magnesium Total Bilirubin AST ALT Alkaline Phosphatase Troponin I NT-Pro-B Natriuret Pep Total Protein Albumin Globulin Albumin/Globulin Ratio Triglycerides Cholesterol LDL Cholesterol Direct HDL Cholesterol TSH 3rd Generation Urine Opiates Screen Negative Urine Methadone Screen Negative Ur Barbiturates Screen Negative Ur Phencyclidine Scrn Negative Ur Amphetamines Screen Negative U Benzodiazepines Scrn Negative U Oth Cocaine Metabols Negative U Cannabinoids Screen Negative Blood Type Blood Type Confirm Antibody Screen BBK History Checked 12/16/18 12/16/18 12/16/18 06:00 06:00 06:00 WBC 8.7 D RBC 5.39 Hgb 13.8 L Hct 42.7 MCV 79.2 L MCH 25.6 MCHC 32.3 RDW 13.6 Plt Count 185 MPV 10.4 Neut % (Auto) 52.0 Lymph % (Auto) 37.0 H Gordon % (Auto) 8.3 H Eos % (Auto) 2.5 Baso % (Auto) 0.2 Lymph # (Auto) 3.2 Gordon # (Auto) 0.7 H Eos # (Auto) 0.2 Baso # (Auto) 0.02 Absolute Neuts (auto) 4.53 ESR 12 PT INR APTT Sodium 140 Potassium 3.7 Chloride 104 Carbon Dioxide 27 Anion Gap 13 BUN 13 Creatinine 0.9 Est GFR ( Amer) > 60 Est GFR (Non-Af Amer) > 60 POC Glucose (mg/dL) Random Glucose 94 Hemoglobin A1c Calcium 9.1 Phosphorus 4.0 Magnesium 2.0 Total Bilirubin 0.9 AST 31 ALT 41 Alkaline Phosphatase 86 Troponin I NT-Pro-B Natriuret Pep Total Protein 7.3 Albumin 4.1 Globulin 3.1 Albumin/Globulin Ratio 1.3 Triglycerides Cholesterol LDL Cholesterol Direct HDL Cholesterol TSH 3rd Generation 8.80 H Urine Opiates Screen Urine Methadone Screen Ur Barbiturates Screen Ur Phencyclidine Scrn Ur Amphetamines Screen U Benzodiazepines Scrn U Oth Cocaine Metabols U Cannabinoids Screen Blood Type Blood Type Confirm Antibody Screen BBK History Checked 12/16/18 06:00 WBC Cancelled RBC Cancelled Hgb Cancelled Hct Cancelled MCV Cancelled MCH Cancelled MCHC Cancelled RDW Cancelled Plt Count Cancelled MPV Cancelled Neut % (Auto) Lymph % (Auto) Gordon % (Auto) Eos % (Auto) Baso % (Auto) Lymph # (Auto) Gordon # (Auto) Eos # (Auto) Baso # (Auto) Absolute Neuts (auto) ESR PT INR APTT Sodium Potassium Chloride Carbon Dioxide Anion Gap BUN Creatinine Est GFR ( Amer) Est GFR (Non-Af Amer) POC Glucose (mg/dL) Random Glucose Hemoglobin A1c Calcium Phosphorus Magnesium Total Bilirubin AST ALT Alkaline Phosphatase Troponin I NT-Pro-B Natriuret Pep Total Protein Albumin Globulin Albumin/Globulin Ratio Triglycerides Cholesterol LDL Cholesterol Direct HDL Cholesterol TSH 3rd Generation Urine Opiates Screen Urine Methadone Screen Ur Barbiturates Screen Ur Phencyclidine Scrn Ur Amphetamines Screen U Benzodiazepines Scrn U Oth Cocaine Metabols U Cannabinoids Screen Blood Type Blood Type Confirm Antibody Screen BBK History Checked Assessment & Plan - Assessment and Plan (Free Text) Assessment: 28 year old male with a past medical history of Factor V Leiden mutation, DVT (18 years of age), PE on Eliquis 5mg BID who presented with sudden onset left sided weakness and slurred speech yesterday. CT Head showed an area of hypodensity in the right parietal and posterior temporal lobe consistent with an acute or subacute infarct, measuring 2.5 x 5 cm. Plan: CVA -intial CT Head showed an area of hypodensity in the right parietal and posterior temporal lobe consistent with an acute or subacute infarct, measuring 2.5 x 5 cm. -Neurology Booth following, follow recs -Repeat Head CT from AM: There is a large infarct in the distribution of the right middle cerebral artery involving the frontal, temporal and parietal lobes. The distribution is unchanged from the recent MRI. There is no evidence of hemorrhage -possible secondary to Factor Leiden -Echo with bubble study pending results Factor 5 Leiden -will obtain records from Dr. Luda Navarro -pending factor 5 leiden levels -homocysteine levels pending -Factor Xa activity pending -folic acid 1mg daily -continue to monitor -further hypercoagable workup pending -continue eliquis -possible addition of brillinta or plavix, pending workup <Keegan Jefferson P - Last Filed: 12/20/18 12:44> Meds - Medications Medications: Current Medications Acetaminophen (Tylenol 325mg Tab) 650 mg PO Q6H PRN PRN Reason: Fever >100.4 F Last Admin: 12/18/18 21:46 Dose: 650 mg Apixaban (Eliquis) 5 mg PO Q12 [facility]; Protocol Last Admin: 12/20/18 10:12 Dose: 5 mg Aspirin (Aspirin) 325 mg PO DAILY [facility] Last Admin: 12/20/18 10:12 Dose: 325 mg Atorvastatin Calcium (Lipitor) 40 mg PO DIN [facility] Last Admin: 12/19/18 18:01 Dose: 40 mg Diphenhydramine HCl (Benadryl) 25 mg PO HS PRN PRN Reason: Insomnia Last Admin: 12/19/18 22:17 Dose: 25 mg Folic Acid (Folic Acid) 1 mg PO DAILY [facility] Last Admin: 12/20/18 10:11 Dose: 1 mg Pantoprazole Sodium (Protonix Ec Tab) 40 mg PO 0600 [facility] Last Admin: 12/20/18 06:43 Dose: 40 mg Results - Vital Signs Recent Vital Signs: Last Vital Signs Temp 98.1 F 12/20/18 06:16 Pulse 70 12/20/18 06:16 Resp 18 12/20/18 06:16 BP 109/77 12/20/18 06:16 Pulse Ox 98 12/20/18 06:16 - Labs Result Diagrams: 12/19/18 23:04 12/19/18 06:30 Labs: Laboratory Results - last 24 hr 12/16/18 12/16/18 12/17/18 06:00 08:35 06:10 WBC RBC Hgb Hct MCV MCH MCHC RDW Plt Count MPV Factor V see note H Factor X 125 Anti-Mitochondrial Titr TNP Anti-Mitochondrial Ab Negative [id number] Ab Beta-2 GPI IgG Ab Beta-2 GPI IgM Ab Striated Muscle Ab TNP Myocardial Ab Titer TNP Anti-Myocardial Ab Negative Reticulin Ab Titer TNP Reticulin IgA Antibody Negative Anti-Cardiolipin IgG Ab Anti-Cardiolipin IgA Ab Anti-Cardiolipin IgM Ab 12/17/18 12/19/18 06:10 23:04 WBC 8.8 RBC 5.25 Hgb 13.6 L Hct 41.6 L MCV 79.2 L MCH 25.9 MCHC 32.7 RDW 13.2 Plt Count 223 MPV 10.3 Factor V Factor X Anti-Mitochondrial Titr Anti-Mitochondrial Ab [id number] Ab <9 Beta-2 GPI IgG Ab <9 Beta-2 GPI IgM Ab <9 Striated Muscle Ab Myocardial Ab Titer Anti-Myocardial Ab Reticulin Ab Titer Reticulin IgA Antibody Anti-Cardiolipin IgG Ab <14 Anti-Cardiolipin IgA Ab <11 Anti-Cardiolipin IgM Ab <12 Attending/Attestation - Attestation I have personally seen and examined this patient.: Yes I have fully participated in the care of the patient.: Yes I have reviewed all pertinent clinical information: Yes
--- NOTE | 2018-12-16 08:55 | CT ---
Date of service: 12/16/2018 PROCEDURE: CT HEAD WITHOUT CONTRAST. HISTORY: stroke COMPARISON: MRIs and CT studies from 12/15/2018 TECHNIQUE: Axial computed tomography images were obtained through the head/brain without intravenous contrast. Radiation dose: Total exam DLP = 781.12 mGy-cm. This CT exam was performed using one or more of the following dose reduction techniques: Automated exposure control, adjustment of the mA and/or kV according to patient size, and/or use of iterative reconstruction technique. FINDINGS: HEMORRHAGE: No intracranial hemorrhage. BRAIN: No mass effect or edema. There is a large infarct in the distribution of the right middle cerebral artery involving the frontal, temporal and parietal lobes. The distribution is unchanged from the recent MRI. There is no evidence of hemorrhage VENTRICLES: Unremarkable. No hydrocephalus. CALVARIUM: Unremarkable. PARANASAL SINUSES: Unremarkable as visualized. No significant inflammatory changes. MASTOID AIR CELLS: Unremarkable as visualized. No inflammatory changes. OTHER FINDINGS: None. IMPRESSION: There is a large infarct in the distribution of the right middle cerebral artery involving the frontal, temporal and parietal lobes. The distribution is unchanged from the recent MRI. There is no evidence of hemorrhage
[2018-12-16 11:41] LABS: COMPLEMENT C4 23.1 mg/dL (14.0-44.0)
--- NOTE | 2018-12-16 18:59 | CARD ---
APPROVED REPORT Date of service: 12/16/2018 EXAM: Two-dimensional and M-mode echocardiogram with Doppler and color Doppler. INDICATION CVA/TIA BUBBLE STUDY 2D DIMENSIONS Left Atrium (2D)4.0 (1.6-4.0cm)IVSd1.2 (0.7-1.1cm) LVDd3.7 (3.9-5.9cm)PWd1.3 (0.7-1.1cm) LVDs2.4 (2.5-4.0cm)FS (%) 34.2 % LVEF (%)64.1 (>50%) M-Mode DIMENSIONS Aortic Root2.60 (2.2-3.7cm)Aortic Cusp Exc.1.70 (1.5-2.0cm) Aortic Valve AoV Peak Otklmtmv387.0cm/Juan José Peak GR.7mmHg Mitral Valve E/A ratio0.0 TDI E/Lateral E'0.0E/Medial E'0.0 Tricuspid Valve TR Peak [id number] [id number] Peak Gr.10mmHg [id number] LEFT VENTRICLE The left ventricle is normal size. The left ventricular function is normal. The left ventricular ejection fraction is within the normal range.Ej.Fr: 64%. RIGHT VENTRICLE The right ventricle is normal size. The right ventricular systolic function is normal. ATRIA The left atrium size is upper normal. The right atrium size is normal. AORTIC VALVE The aortic valve is normal in structure. MITRAL VALVE The mitral valve is normal in structure. Mitral regurgitation is trace. TRICUSPID VALVE The tricuspid valve is normal in structure. There is trace tricuspid regurgitation. PERICARDIAL EFFUSION There is no pericardial effusion. <Conclusion> The left ventricle is normal size. The left ventricular function is normal. The left ventricular ejection fraction is within the normal range.Ej.Fr: 64%. Lv shows Minimal Diastolic Dysfunction. The right ventricle is normal size. The right ventricular systolic function is normal. The left atrium size is upper normal. The right atrium size is normal. The aortic valve is normal in structure. The mitral valve is normal in structure. Mitral regurgitation is trace. The tricuspid valve is normal in structure. There is trace tricuspid regurgitation. There is no pericardial effusion.
--- NOTE | 2018-12-17 07:23 | CP.PCM.PN ---
Subjective - Date & Time of Evaluation Date of Evaluation: 12/17/18 Time of Evaluation: 06:22 - Subjective Subjective: Awake, no distress Reason for consultation and follow up:Cardiac evaluation, admitted for stroke, on Eliquis, history of Factor V Leiden deficiency, DVT Seen and examined by me and Dr. Retana Objective - Vital Signs/Intake and Output Vital Signs (last 24 hours): Temp Pulse Resp BP Pulse Ox 98.3 F 83 18 109/74 98 12/17/18 06:00 12/17/18 06:00 12/17/18 06:00 12/17/18 06:00 12/17/18 06:00 Intake and Output: 12/17/18 12/17/18 06:59 18:59 Intake Total 1552 Output Total 2540 Balance -988 - Medications Medications: Current Medications Apixaban (Eliquis) 5 mg PO Q12 [facility]; Protocol Last Admin: 12/16/18 21:55 Dose: 5 mg Aspirin (Aspirin) 325 mg PO DAILY [facility] Folic Acid (Folic Acid) 1 mg PO DAILY [facility] Last Admin: 12/16/18 15:57 Dose: 1 mg Sodium Chloride (Sodium Chloride 0.9%) 1,000 mls @ 100 mls/hr IV .Q10H [facility] Last Admin: 12/16/18 21:55 Dose: 100 mls/hr Pantoprazole Sodium (Protonix Inj) 40 mg IVP DAILY [facility] Last Admin: 12/16/18 09:35 Dose: 40 mg - Labs Labs: 12/16/18 06:00 12/16/18 06:00 PT 15.2 SECONDS (9.4-12.5) H 12/15/18 12:42 INR 1.35 12/15/18 12:42 APTT 44.4 Seconds (26.9-38.3) H 12/15/18 12:42 - Constitutional Appears: Non-toxic, No Acute Distress - Head Exam Head Exam: NORMAL INSPECTION, NORMOCEPHALIC - Eye Exam Eye Exam: Normal appearance Pupil Exam: NORMAL ACCOMODATION - ENT Exam ENT Exam: Mucous Membranes Moist, Normal Exam - Respiratory Exam Respiratory Exam: Decreased Breath Sounds, Clear to Ausculation Bilateral, NORMAL BREATHING PATTERN - Cardiovascular Exam Cardiovascular Exam: REGULAR RHYTHM, +S1, +S2 - GI/Abdominal Exam GI & Abdominal Exam: Soft, Normal Bowel Sounds - Extremities Exam Extremities Exam: Full ROM, Normal Capillary Refill - Neurological Exam Neurological Exam: Alert, Awake, Oriented x3 - Psychiatric Exam Psychiatric exam: Normal Affect, Normal Mood - Skin Skin Exam: Dry, Normal Color, Warm Assessment and Plan - Assessment and Plan (Free Text) Assessment: A 28 years old male who came in to the ER due to complaining of left arm weakness, left facial droop, drooling and slurred speech 20 minutes prior to arrival.Per the patient's mother, the patient has similar presentation last week at [facility] where CT scan of head was unremarkable and was discharged and to continue Eliquis. History of Factor V Leiden deficiency ( on Eliquis), pulmonary embolism, DVT, TIA. Cardiac consult was called for evaluation of tachycardia and Eliquis for recurrent stroke. CT scan of head showed there is an area of hypodensity in the right parietal and posterior temporal lobe consistent with acute or sub acute infarct.This measures 2.5cm to 5cm. No evidence of hemorrhage. Neurologist was called but no TPA given. patient in on Eliquis. Repeat CT of head done yesterday, unchanged from previous study. Keep SBP about 180 to neuro perfuse. Echo done and showed LVEF 64%, trace mitral and tricuspid regurgitation. for JOSEPHINE to rule out PFO. Plan: For JOSEPHINE to rule out PFO No distress Heart rate controlled Maintain SBP 180's for neuro perfusion Continue current treatment Eliquis increased to 5 mg BID Hematology on consult Neuro checks Will follow up Plan and treatment discussed with Dr. Retana
--- NOTE | 2018-12-17 09:08 | CP.PCM.PN ---
<Juan [address] Way - Last Filed: 12/17/18 14:05> Subjective - Date & Time of Evaluation Date of Evaluation: 12/17/18 Time of Evaluation: 06:00 - Subjective Subjective: Juan Luis Way PGY2 Heme/Onc Progress Note for Dr. Jefferson Patient seen and evaluated bedside in AM. No acute issues overnight. Patient states he feels better today. Denies headaches, numbness, or any other complains. Objective - Vital Signs/Intake and Output Vital Signs (last 24 hours): Temp Pulse Resp BP Pulse Ox 98.3 F 83 18 109/74 98 12/17/18 06:00 12/17/18 06:00 12/17/18 06:00 12/17/18 06:00 12/17/18 06:00 Intake and Output: 12/17/18 12/17/18 06:59 18:59 Intake Total 1552 Output Total 2540 Balance -988 - Medications Medications: Current Medications Apixaban (Eliquis) 5 mg PO Q12 [facility]; Protocol Last Admin: 12/16/18 21:55 Dose: 5 mg Aspirin (Aspirin) 325 mg PO DAILY [facility] Folic Acid (Folic Acid) 1 mg PO DAILY [facility] Last Admin: 12/16/18 15:57 Dose: 1 mg Sodium Chloride (Sodium Chloride 0.9%) 1,000 mls @ 100 mls/hr IV .Q10H [facility] Last Admin: 12/16/18 21:55 Dose: 100 mls/hr Pantoprazole Sodium (Protonix Inj) 40 mg IVP DAILY [facility] Last Admin: 12/16/18 09:35 Dose: 40 mg - Labs Labs: 12/16/18 06:00 12/16/18 06:00 PT 15.2 SECONDS (9.4-12.5) H 12/15/18 12:42 INR 1.35 12/15/18 12:42 APTT 44.4 Seconds (26.9-38.3) H 12/15/18 12:42 - Constitutional Appears: Non-toxic, No Acute Distress - Eye Exam Eye Exam: EOMI - ENT Exam ENT Exam: Mucous Membranes Moist - Respiratory Exam Respiratory Exam: Clear to Ausculation Bilateral, NORMAL BREATHING PATTERN - Neurological Exam Neurological Exam: Alert, Awake, Oriented x3 Assessment and Plan - Assessment and Plan (Free Text) Assessment: 28 year old male with a past medical history of Factor V Leiden mutation, DVT (18 years of age), PE on Eliquis 5mg BID who presented with sudden onset left sided weakness and slurred speech yesterday. CT Head showed an area of hypodensity in the right parietal and posterior temporal lobe consistent with an acute or subacute infarct, measuring 2.5 x 5 cm. Plan: CVA -initial CT Head showed an area of hypodensity in the right parietal and posterior temporal lobe consistent with an acute or subacute infarct, measuring 2.5 x 5 cm. -Neurology Booth following, follow recs -Repeat Head CT: There is a large infarct in the distribution of the right middle cerebral artery involving the frontal, temporal and parietal lobes. The distribution is unchanged from the recent MRI. There is no evidence of hemorrhage -possible secondary to Factor Leiden -Echo with bubble study negative Factor 5 Leiden -pending factor 5 leiden levels -homocysteine levels pending -Factor Xa activity pending -folic acid 1mg daily -continue to monitor -further hypercoagable workup pending -continue eliquis 5mg BID and aspirin 325 -possible addition of brillinta or plavix, pending workup -carotid US negative -Lower extremity duplex negative -CT of Chest Abdomen and Pelvis: shows some paratracheal lymph nodes 9mm and additional nonspecific mediastinal/prevascular nodes. Sub cm mesenteric and retroperitoneal lymph nodes <Keegan Jefferson - Last Filed: 12/20/18 12:36> Objective - Vital Signs/Intake and Output Vital Signs (last 24 hours): Temp Pulse Resp BP Pulse Ox 98.1 F 70 18 109/77 98 12/20/18 06:16 12/20/18 06:16 12/20/18 06:16 12/20/18 06:16 12/20/18 06:16 Intake and Output: 12/20/18 12/20/18 06:59 18:59 Intake Total 1740 Balance 1740 - Medications Medications: Current Medications Acetaminophen (Tylenol 325mg Tab) 650 mg PO Q6H PRN PRN Reason: Fever >100.4 F Last Admin: 12/18/18 21:46 Dose: 650 mg Apixaban (Eliquis) 5 mg PO Q12 [facility]; Protocol Last Admin: 12/20/18 10:12 Dose: 5 mg Aspirin (Aspirin) 325 mg PO DAILY [facility] Last Admin: 12/20/18 10:12 Dose: 325 mg Atorvastatin Calcium (Lipitor) 40 mg PO DIN [facility] Last Admin: 12/19/18 18:01 Dose: 40 mg Diphenhydramine HCl (Benadryl) 25 mg PO HS PRN PRN Reason: Insomnia Last Admin: 12/19/18 22:17 Dose: 25 mg Folic Acid (Folic Acid) 1 mg PO DAILY [facility] Last Admin: 12/20/18 10:11 Dose: 1 mg Pantoprazole Sodium (Protonix Ec Tab) 40 mg PO 0600 [facility] Last Admin: 12/20/18 06:43 Dose: 40 mg - Labs Labs: 12/19/18 23:04 12/19/18 06:30 PT 15.2 SECONDS (9.4-12.5) H 12/15/18 12:42 INR 1.35 12/15/18 12:42 APTT 44.4 Seconds (26.9-38.3) H 12/15/18 12:42 Attending/Attestation - Attestation I have personally seen and examined this patient.: Yes I have fully participated in the care of the patient.: Yes I have reviewed all pertinent clinical information, including history, physical exam and plan: Yes
--- NOTE | 2018-12-17 09:47 | US ---
PROCEDURE: Bilateral carotid artery duplex ultrasound HISTORY: Carotid stenosis CVA PHYSICIAN(S): Ishmael Young MD. TECHNIQUE: Duplex sonography and color-flow Doppler were used to evaluate the carotid bifurcations and limited segments of the vertebral arteries bilaterally. FINDINGS: There is mild smooth hypoechoic plaque noted at the carotid bifurcations bilaterally. The peak systolic velocity in the proximal right internal carotid artery is 95 cm/sec. This corresponds to a 20 to 39% proximal right ICA stenosis. Normal systolic velocities are noted in the proximal right external carotid artery. There is antegrade flow in the right vertebral artery. The peak systolic velocity in the proximal left internal carotid artery is 72 cm/sec. This corresponds to a 20 to 39% proximal left ICA stenosis. Normal systolic velocities are noted in the proximal left external carotid artery. There is antegrade flow in the left vertebral artery. IMPRESSION: 1. Bilateral 20-39% proximal ICA stenoses. 2. Antegrade flow in both vertebral arteries.
--- NOTE | 2018-12-17 09:47 | US ---
HISTORY: Leg pain and swelling. Evaluate for DVT PHYSICIAN(S): Ishmael Young MD. TECHNIQUE: Duplex sonography and color-flow Doppler with graded compression were used to evaluate the deep venous systems of both lower extremities. FINDINGS: The visualized deep venous systems of both lower extremities are sonographically normal and compressible. Normal wave forms and augmentation are seen. There is no sonographic evidence for deep venous thrombosis in the visualized segments of both lower extremities. IMPRESSION: No sonographic evidence for deep venous thrombosis in the visualized segments of both lower extremities.
--- NOTE | 2018-12-17 10:15 | CT ---
Date of service: 12/17/2018 CT chest, abdomen, and pelvis without IV contrast Indication: rule out malignnacy Technique: Contiguous axial images of the chest, abdomen, and pelvis without oral or IV contrast. Coronal and Sagittal reformats generated and reviewed. This CT exam was performed using 1 or more of the following dose reduction techniques: Automated exposure control, adjustment of the MAA and/or kV according to patient size, and/or use of iterative reconstruction technique. Radiation dose: Total exam DLP = 1356.56 MGy-cm. Comparison: Noncontrast chest CT performed 11/10/15, abdominal ultrasound performed 04/08/12 Findings: Limited visualized portions of the inferior thyroid gland appear unremarkable. The noncontrast mediastinal and hilar vascular structures appear grossly unremarkable. The heart appears within normal limits of size. Right basilar atelectasis. No pleural effusion. No pneumothorax. No suspicious pulmonary nodule identified measuring greater than 5 mm. Right paratracheal lymph node measures approximately 9 mm in short axis (series 3, image 14), nonspecific. Sub cm mediastinal/prevascular lymph nodes, nonspecific. Sub cm bilateral axillary lymph nodes, nonspecific. The noncontrast liver, spleen, kidneys, pancreas, adrenal glands, and gallbladder appear unremarkable. Sub cm retroperitoneal and mesenteric lymph nodes, nonspecific. The stomach is nondistended. Lack of oral contrast limits evaluation for bowel pathology. The bowel loops appear within normal limits of caliber without evidence of intestinal obstruction. Diverticulosis without CT evidence of acute diverticulitis. The appendix appears within normal limits of caliber. No secondary signs of acute appendicitis. There is no definite free air. Prostate gland appears grossly unremarkable. Jackson catheter within a decompressed urinary bladder which contains air. No acute osseous abnormality detected. Impression: Mild right basilar atelectasis. Diverticulosis without CT evidence of acute diverticulitis. Jackson catheter within a decompressed urinary bladder which contains air. Presence of air is likely related to recent instrumentation. Recommend correlation with urinalysis. Right paratracheal lymph node measures approximately 9 mm in short axis, nonspecific. Additional scattered nonspecific mediastinal/prevascular nodes. Sub cm mesenteric and retroperitoneal lymph nodes, nonspecific. Additional findings as above.
--- NOTE | 2018-12-17 10:34 | CP.PCM.PN ---
<Ramón Rodrigues - Last Filed: 12/17/18 13:14> Subjective - Date & Time of Evaluation Date of Evaluation: 12/17/18 Time of Evaluation: 10:31 - Subjective Subjective: Ramón Rodrigues DO, PGY-2: Neurology Progress Note for Dr. Booth Patient was seen and examined at bedside. Mother and father also present. He reports having no headache. Family asked a number of questions in which answers were provided satisfactorily. He is playing chess, squeezing tennis ball with left hand, and did cross-word puzzles in the interim. Patient has been requesting sleep aid for the past two nights. Otherwise, no complaints elicited today. Objective - Vital Signs/Intake and Output Vital Signs (last 24 hours): Temp Pulse Resp BP Pulse Ox 98.3 F 83 18 109/74 98 12/17/18 06:00 12/17/18 06:00 12/17/18 06:00 12/17/18 06:00 12/17/18 06:00 Intake and Output: 12/17/18 12/17/18 06:59 18:59 Intake Total 1552 Output Total 2540 Balance -988 - Medications Medications: Current Medications Apixaban (Eliquis) 5 mg PO Q12 [facility]; Protocol Last Admin: 12/16/18 21:55 Dose: 5 mg Aspirin (Aspirin) 325 mg PO DAILY [facility] Folic Acid (Folic Acid) 1 mg PO DAILY [facility] Last Admin: 12/16/18 15:57 Dose: 1 mg Sodium Chloride (Sodium Chloride 0.9%) 1,000 mls @ 100 mls/hr IV .Q10H [facility] Last Admin: 12/16/18 21:55 Dose: 100 mls/hr Pantoprazole Sodium (Protonix Inj) 40 mg IVP DAILY [facility] Last Admin: 12/16/18 09:35 Dose: 40 mg - Labs Labs: 12/16/18 06:00 12/16/18 06:00 PT 15.2 SECONDS (9.4-12.5) H 12/15/18 12:42 INR 1.35 12/15/18 12:42 APTT 44.4 Seconds (26.9-38.3) H 12/15/18 12:42 - Constitutional Appears: Well, Non-toxic - Head Exam Head Exam: ATRAUMATIC, NORMOCEPHALIC - Eye Exam Eye Exam: EOMI, Normal appearance - ENT Exam ENT Exam: Mucous Membranes Moist - Neck Exam Neck Exam: Normal Inspection - Respiratory Exam Respiratory Exam: NORMAL BREATHING PATTERN. absent: Accessory Muscle Use - Cardiovascular Exam Cardiovascular Exam: RRR, +S1, +S2 - GI/Abdominal Exam GI & Abdominal Exam: Soft, Normal Bowel Sounds. absent: Rebound - Extremities Exam Extremities Exam: Normal Inspection. absent: Calf Tenderness - Neurological Exam Neurological Exam: Alert, Awake, Oriented x3 Neuro motor strength exam: Left Upper Extremity: 4 (mainly in proximal muscles), Right Upper Extremity: 5, Left Lower Extremity: 5, Right Lower Extremity: 5 Additional comments: CN exam: left facial palsy, unable to stick out tongue - Psychiatric Exam Psychiatric exam: Normal Affect, Normal Mood - Skin Skin Exam: Dry, Intact, Normal Color, Warm Assessment and Plan - Assessment and Plan (Free Text) Assessment: 28 year old male with a past medical history of Factor V Leiden mutation, DVT (18 years of age), PE of Eliquis who presnted with one sudden onset left sided weakness and slurred speech yesterday. Patient was not a candidate for tPA due to taking Eliquis. MRI of brain shows large acute infarct in the distribution of the right middle cerebral artery involving the right frontal, temporal and parietal lobes. 1) Acute stroke - MRI reports there is a large acute infarct in the distribution of the right middle cerebral artery involving the right frontal, temporal and parietal lobes. The infarct is also visible on T2 and FLAIR images. - Echocardiogram with bubble study does not comment on evidence of PFO or thrombus - Transesophageal Echocardiogram scheduled for Saturday - dysphagia evaluation. - PT/OT/Speech therapy. - Hematology consulted, Dr. Jefferson - hypercoaguble work-up pending - carotid duplex reports 20-39% proximal Internal Carotid Artery stenosis - Determining which antiplatelet/anticoagulant regiment the patient should be on is paramount Case was reviewed and discussed with attending physician, Dr. Booth <Brice Booth - Last Filed: 12/17/18 15:32> Objective - Vital Signs/Intake and Output Vital Signs (last 24 hours): Temp Pulse Resp BP Pulse Ox 97.7 F 90 18 138/92 H 98 12/17/18 12:00 12/17/18 12:00 12/17/18 12:00 12/17/18 12:00 12/17/18 06:00 Intake and Output: 12/17/18 12/17/18 06:59 18:59 Intake Total 1552 Output Total 2540 Balance -988 - Medications Medications: Current Medications Apixaban (Eliquis) 5 mg PO Q12 [facility]; Protocol Last Admin: 12/17/18 10:47 Dose: 5 mg Aspirin (Aspirin) 325 mg PO DAILY [facility] Last Admin: 12/17/18 10:47 Dose: 325 mg Folic Acid (Folic Acid) 1 mg PO DAILY [facility] Last Admin: 12/17/18 10:47 Dose: 1 mg Sodium Chloride (Sodium Chloride 0.9%) 1,000 mls @ 100 mls/hr IV .Q10H [facility] Last Admin: 12/16/18 21:55 Dose: 100 mls/hr Levothyroxine Sodium (Synthroid) 25 mcg PO 0600 [facility] Pantoprazole Sodium (Protonix Inj) 40 mg IVP DAILY [facility] Last Admin: 12/17/18 10:46 Dose: 40 mg - Labs Labs: 12/16/18 06:00 12/16/18 06:00 PT 15.2 SECONDS (9.4-12.5) H 12/15/18 12:42 INR 1.35 12/15/18 12:42 APTT 44.4 Seconds (26.9-38.3) H 12/15/18 12:42 Assessment and Plan - Assessment and Plan (Free Text) Assessment: All medical record entries made by the Resident were at my direction and personally dictated by me. I have reviewed the chart and agree that the record accurately reflects my personal performance of the history, physical exam, medical decision making, and the department course for this patient. I have also personally directed, reviewed, and agree with the discharge instructions and disposition. MR. Franco is much stronger in left chiropractic neurologist: 5-/5 now, and good strength in biceps and triceps as well. He does have a left drift, with left facial weakness. 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 He has no aphasia or dysarthria. Heme/Onc consult appreciated. JOSEPHINE pending for Saturday. ECHo shows no pfo. We will continue aspirin and eloquiss and await possibel switch to pradaxa or brillinta. Thank you Dr. Booth
--- NOTE | 2018-12-17 13:55 | PN ---
DATE: 12/16/2018 SUBJECTIVE: The patient is seen on 12/16/2018. He seems comfortable, stable, able to lift his arm, move his fingers. He is able to swallow pureed diet after swallowing eval. No chest pain. No short of breath. No other complaints. PHYSICAL EXAMINATION: VITAL SIGNS: On 12/16/2018, temperature 98.7, blood pressure 119/84, heart rate 80, respirations 16, saturation 98%. HEENT: Head and neck exam normal except left facial droop. NECK: Normal. CHEST: Clear bilateral. CARDIAC: First sound and second sound normal, regular. No murmur, rub, or gallop. ABDOMEN: Soft, nontender. EXTREMITIES: No edema. NEUROLOGIC: The patient has mild weakness in the left upper extremity, right facial droop. Gait was not tested. LABORATORY STUDIES: He had white count 8.7, hemoglobin 13.8, hematocrit 42.7, platelets 185. Chemistry; sodium 140, potassium 3.7, chloride 104, carbon dioxide 27, BUN 13, creatinine 0.9, phosphorus 9.1. Hemoglobin A1c 5.5. Magnesium 2. Liver function test is normal. His TSH came back 8.8. IMPRESSION AND PLAN: 1. Acute cerebrovascular accident. MRI shows distribution of middle cerebral artery occlusions. Continue current anticoagulation therapy. Eliquis 5 mg twice daily plus aspirin 325 mg oral daily. Discussed with the neurologist before discussed with Dr. Jefferson about the hypercoagulable state and factor X being evaluated for possible adjustment of Eliquis, still pending. We will continue current therapy for now. Continue physical therapy, speech therapy, and we will follow up. The patient could have pureed diet, so we will continue giving medication by mouth with pureed diet format and we will follow up daily. 2. Blood pressure goff, we need to keep the blood pressure elevated in the presence of acute stroke and we will discontinue metoprolol. The patient seems stable. Discontinue metoprolol and we will continue intravenous fluids for now to keep the pressure elevated. 3. Anxiety. I spoke with the family, with the patient's father and explained all the test results. 4. Hypercoagulable state, possible rule out any occult malignancy. Dr. Jefferson evaluated the patient. He had the CT of the abdomen and pelvis, unremarkable and he had a venous Doppler of both lower extremity, unremarkable. Echocardiography was done. A transesophageal echocardiography will possibly be done to evaluate for acute septal defect. We will continue current therapy. We will follow up clinically. 5. Thyroid stimulating hormone is abnormal, hypothyroidism. We are going to get thyroid ultrasound. We are going to get thyroid test again. Start him on levothyroxine and we will follow up clinically. Rudolph Lopez MD
--- NOTE | 2018-12-17 14:09 | US ---
Date of service: 12/17/2018 HISTORY: thyroid dysfunction TECHNIQUE: Sonographic evaluation of the thyroid gland. COMPARISON: None available FINDINGS: RIGHT LOBE: Measures 4.6 x 1.2 x 1.3 cm. Normal echotexture and flow. Nodules: None LEFT LOBE: Measures 4.1 x 1.0 x 1.3 cm. Normal echotexture and flow. Nodules: None ISTHMUS: Measures 0.2 cm. Normal echotexture and flow. Nodules: None OTHER FINDINGS: None . IMPRESSION: Unremarkable thyroid sonogram.
--- NOTE | 2018-12-18 04:55 | PN ---
DATE: 12/17/2018 SUBJECTIVE: The patient is seen today. He is standing, walking to the bathroom, independent, although he is still unsteady. Advised to ask for assistance. Has no chest pain. No shortness of breath. He is able to talk, able to swallow. He did seem stable. PHYSICAL EXAMINATION: VITAL SIGNS: Temperature 97.7, heart rate 90, blood pressure 129/92, respirations 18, saturation 98%. HEAD AND NECK: Normal. No JVD. No thyromegaly. CHEST: Clear bilaterally. CARDIAC: First sound and second sound normal. ABDOMEN: Soft, nontender. EXTREMITIES: No edema. NEUROLOGICAL: Left facial, left arm weakness. LABORATORY STUDY: White count 8.7, hemoglobin 13.8, hematocrit 42.7, platelets 185. Chemistry noted for TSH 8.8. IMPRESSION AND PLAN: 1. Acute cerebrovascular accident. Continue aspirin plus Eliquis. The patient's family refused transesophageal echo. Discussed with Cardiology. Risks and benefits explained. 2. Hypercoagulable state, history of pulmonary embolism and deep venous thrombosis. Continue Eliquis and aspirin plus folic acid. 3. Dysphagia, weakness, probably going to need physical therapy inpatient. We will continue to do that and we will follow up clinically. Continue current treatment. Rudolph Lopez MD
[2018-12-18] MEDS ORDERED: Levothyroxine 25 MCG TAB PO SCH (06:00)
[2018-12-18] MEDS: Pantoprazole 40 mg EC Tab PO SCH (06:07)
--- NOTE | 2018-12-18 07:05 | CP.PCM.PN ---
Subjective - Date & Time of Evaluation Date of Evaluation: 12/18/18 Time of Evaluation: 06:15 - Subjective Subjective: Lying in bed,awake, no distress Reason for consultation and follow up: Cardiac evaluation, admitted for stroke, on Eliquis, history of Factor V Leiden deficiency, DVT Seen and examined by me and Dr. Retana Objective - Vital Signs/Intake and Output Vital Signs (last 24 hours): Temp Pulse Resp BP Pulse Ox 98.4 F 64 20 111/69 96 12/18/18 06:00 12/18/18 06:00 12/18/18 06:00 12/18/18 06:00 12/18/18 06:00 Intake and Output: 12/18/18 12/18/18 06:59 18:59 Intake Total 1552 Output Total 1550 Balance 2 - Medications Medications: Current Medications Acetaminophen (Tylenol 325mg Tab) 650 mg PO Q6H PRN PRN Reason: Fever >100.4 F Last Admin: 12/17/18 22:42 Dose: 650 mg Apixaban (Eliquis) 5 mg PO Q12 [facility]; Protocol Last Admin: 12/17/18 21:52 Dose: 5 mg Aspirin (Aspirin) 325 mg PO DAILY [facility] Last Admin: 12/17/18 10:47 Dose: 325 mg Diphenhydramine HCl (Benadryl) 25 mg PO HS PRN PRN Reason: Insomnia Last Admin: 12/17/18 22:42 Dose: 25 mg Folic Acid (Folic Acid) 1 mg PO DAILY [facility] Last Admin: 12/17/18 10:47 Dose: 1 mg Sodium Chloride (Sodium Chloride 0.9%) 1,000 mls @ 100 mls/hr IV .Q10H [facility] Last Admin: 12/16/18 21:55 Dose: 100 mls/hr Pantoprazole Sodium (Protonix Ec Tab) 40 mg PO 0600 [facility] Last Admin: 12/18/18 06:07 Dose: 40 mg - Labs Labs: 12/16/18 06:00 12/16/18 06:00 PT 15.2 SECONDS (9.4-12.5) H 12/15/18 12:42 INR 1.35 12/15/18 12:42 APTT 44.4 Seconds (26.9-38.3) H 12/15/18 12:42 - Constitutional Appears: Non-toxic, No Acute Distress - Head Exam Head Exam: NORMAL INSPECTION, NORMOCEPHALIC - Eye Exam Eye Exam: Normal appearance - ENT Exam ENT Exam: Mucous Membranes Moist - Respiratory Exam Respiratory Exam: Decreased Breath Sounds, Clear to Ausculation Bilateral, NORMAL BREATHING PATTERN - Cardiovascular Exam Cardiovascular Exam: REGULAR RHYTHM, +S1, +S2 - GI/Abdominal Exam GI & Abdominal Exam: Soft, Normal Bowel Sounds - Extremities Exam Extremities Exam: Full ROM, Normal Capillary Refill - Neurological Exam Neurological Exam: Alert, Awake, Oriented x3 - Psychiatric Exam Psychiatric exam: Normal Affect, Normal Mood - Skin Skin Exam: Dry, Normal Color, Warm Assessment and Plan - Assessment and Plan (Free Text) Assessment: A 28 years old male who came in to the ER due to complaining of left arm weakness, left facial droop, drooling and slurred speech 20 minutes prior to arrival.Per the patient's mother, the patient has similar presentation last week at [facility] where CT scan of head was unremarkable and was discharged and to continue Eliquis. History of Factor V Leiden deficiency ( on Eliquis), pulmonary embolism, DVT, TIA. Cardiac consult was called for evaluation of tachycardia and Eliquis for recurrent stroke. CT scan of head showed there is an area of hypodensity in the right parietal and posterior temporal lobe consistent with acute or sub acute infarct.This measures 2.5cm to 5cm. No evidence of hemorrhage. Neurologist was called but no TPA given. patient in on Eliquis. Repeat CT of head done yesterday, unchanged from previous study. Echo done and showed LVEF 64%, trace mitral and tricuspid regurgitation. No PFO. Neuro on consult. Hematology on consult. On Eliquis for anticoagulation. Thyroid scan unremarkable. Carotid studies showed 20-39% bilateral proximal ICA stenosis. Feels okay. For JOSEPHINE to rule out PFO patient and family initially refusing but now agreeable. Will schedule JOSEPHINE tomorrow. NPO post midnight. Plan: Initially Refusing JOSEPHINE to rule out PFO but now agreeable For JOSEPHINE tomorrow NPO post midnight No distress Heart rate controlled Continue current treatment Eliquis increased to 5 mg BID Neuro on consult Hematology on consult Neuro checks Will follow up Plan and treatment discussed with Dr. Retana
--- NOTE | 2018-12-18 09:06 | CP.PCM.PN ---
<Juan Luis Way - Last Filed: 12/18/18 20:25> Subjective - Date & Time of Evaluation Date of Evaluation: 12/18/18 Time of Evaluation: 06:00 - Subjective Subjective: Juan Luis Way PGY2 Heme/Onc Progress Note for Dr. Jefferson Patient seen and evaluated bedside in AM. No acute issues overnight. Patient states he feels better but occasionally gets headaches which improve with tylenol. Denies any numbness, weakness or any other complains. Objective - Vital Signs/Intake and Output Vital Signs (last 24 hours): Temp Pulse Resp BP Pulse Ox 98.4 F 64 20 111/69 96 12/18/18 06:00 12/18/18 06:00 12/18/18 06:00 12/18/18 06:00 12/18/18 06:00 Intake and Output: 12/18/18 12/18/18 06:59 18:59 Intake Total 1552 Output Total 1550 Balance 2 - Medications Medications: Current Medications Acetaminophen (Tylenol 325mg Tab) 650 mg PO Q6H PRN PRN Reason: Fever >100.4 F Last Admin: 12/17/18 22:42 Dose: 650 mg Apixaban (Eliquis) 5 mg PO Q12 [facility]; Protocol Last Admin: 12/17/18 21:52 Dose: 5 mg Aspirin (Aspirin) 325 mg PO DAILY [facility] Last Admin: 12/17/18 10:47 Dose: 325 mg Diphenhydramine HCl (Benadryl) 25 mg PO HS PRN PRN Reason: Insomnia Last Admin: 12/17/18 22:42 Dose: 25 mg Folic Acid (Folic Acid) 1 mg PO DAILY [facility] Last Admin: 12/17/18 10:47 Dose: 1 mg Sodium Chloride (Sodium Chloride 0.9%) 1,000 mls @ 100 mls/hr IV .Q10H [facility] Last Admin: 12/16/18 21:55 Dose: 100 mls/hr Pantoprazole Sodium (Protonix Ec Tab) 40 mg PO 0600 [facility] Last Admin: 12/18/18 06:07 Dose: 40 mg - Labs Labs: 12/16/18 06:00 12/16/18 06:00 PT 15.2 SECONDS (9.4-12.5) H 12/15/18 12:42 INR 1.35 12/15/18 12:42 APTT 44.4 Seconds (26.9-38.3) H 12/15/18 12:42 - Constitutional Appears: No Acute Distress - Head Exam Head Exam: ATRAUMATIC, NORMAL INSPECTION, NORMOCEPHALIC - Eye Exam Eye Exam: EOMI, Normal appearance - ENT Exam ENT Exam: Mucous Membranes Moist - Respiratory Exam Respiratory Exam: Clear to Ausculation Bilateral, NORMAL BREATHING PATTERN - Cardiovascular Exam Cardiovascular Exam: REGULAR RHYTHM Assessment and Plan - Assessment and Plan (Free Text) Assessment: 28 year old male with a past medical history of Factor V Leiden mutation, DVT (18 years of age), PE on Eliquis 5mg BID who presented with sudden onset left sided weakness and slurred speech yesterday. CT Head showed an area of hypodensity in the right parietal and posterior temporal lobe consistent with an acute or subacute infarct, measuring 2.5 x 5 cm. Plan: CVA -initial CT Head showed an area of hypodensity in the right parietal and posterior temporal lobe consistent with an acute or subacute infarct, measuring 2.5 x 5 cm. -Neurology Booth following, follow recs -Repeat Head CT: There is a large infarct in the distribution of the right middle cerebral artery involving the frontal, temporal and parietal lobes. The distribution is unchanged from the recent MRI. There is no evidence of hemorrhage -possible secondary to Factor Leiden -Echo with bubble study negative -JOSEPHINE pending to rule out PFO Factor 5 Leiden -pending factor 5 leiden levels -homocysteine levels pending -Factor Xa activity pending -folic acid 1mg daily -continue to monitor -further hypercoagable workup pending -continue eliquis 5mg BID and aspirin 325 -possible addition of brillinta or plavix, pending workup -carotid US negative -Lower extremity duplex negative -CT of Chest Abdomen and Pelvis: shows some paratracheal lymph nodes 9mm and additional nonspecific mediastinal/prevascular nodes. Sub cm mesenteric and retroperitoneal lymph nodes <Keegan Jefferson - Last Filed: 12/20/18 12:28> Objective - Vital Signs/Intake and Output Vital Signs (last 24 hours): Temp Pulse Resp BP Pulse Ox 98.1 F 70 18 109/77 98 12/20/18 06:16 12/20/18 06:16 12/20/18 06:16 12/20/18 06:16 12/20/18 06:16 Intake and Output: 12/20/18 12/20/18 06:59 18:59 Intake Total 1740 Balance 1740 - Medications Medications: Current Medications Acetaminophen (Tylenol 325mg Tab) 650 mg PO Q6H PRN PRN Reason: Fever >100.4 F Last Admin: 12/18/18 21:46 Dose: 650 mg Apixaban (Eliquis) 5 mg PO Q12 [facility]; Protocol Last Admin: 12/20/18 10:12 Dose: 5 mg Aspirin (Aspirin) 325 mg PO DAILY [facility] Last Admin: 12/20/18 10:12 Dose: 325 mg Atorvastatin Calcium (Lipitor) 40 mg PO DIN [facility] Last Admin: 12/19/18 18:01 Dose: 40 mg Diphenhydramine HCl (Benadryl) 25 mg PO HS PRN PRN Reason: Insomnia Last Admin: 12/19/18 22:17 Dose: 25 mg Folic Acid (Folic Acid) 1 mg PO DAILY [facility] Last Admin: 12/20/18 10:11 Dose: 1 mg Pantoprazole Sodium (Protonix Ec Tab) 40 mg PO 0600 [facility] Last Admin: 12/20/18 06:43 Dose: 40 mg - Labs Labs: 12/19/18 23:04 12/19/18 06:30 PT 15.2 SECONDS (9.4-12.5) H 12/15/18 12:42 INR 1.35 12/15/18 12:42 APTT 44.4 Seconds (26.9-38.3) H 12/15/18 12:42 Attending/Attestation - Attestation I have personally seen and examined this patient.: Yes I have fully participated in the care of the patient.: Yes I have reviewed all pertinent clinical information, including history, physical exam and plan: Yes
--- NOTE | 2018-12-19 01:41 | PN ---
DATE: 12/18/2018 SUBJECTIVE: A 28-year-old male, seen today. Family around him. The patient is stable, in no distress. Slept good last night, walked to the bathroom. He still has some facial asymmetry, left facial droop, and mild weakness of his left upper extremity. The patient has no chest pain, no short of breath. PHYSICAL EXAMINATION: VITAL SIGNS: Temperature 98.4, heart rate 89, blood pressure 111/69, respirations 20, saturation 96% on room air. HEAD AND NECK: Normal. No JVD. No thyromegaly. CHEST: Clear, bilateral. CARDIAC: First sound and second sounds are normal. No murmur, rub, or gallop. ABDOMEN: Soft, nontender. EXTREMITIES: No edema. NEUROLOGIC: Normal. LABORATORY STUDIES: Last white count 8.7, hemoglobin 13.8, hematocrit 42.7, and platelets are 185. Chemistry: Sodium 140, potassium 3.7, chloride 104, bicarb 27, BUN 13, creatinine 0.9. Liver function tests are normal. Repeat TSH is 3.65. IMPRESSION AND PLAN: 1. Acute cerebrovascular accident with right cerebellar infarctions including the parietal and frontal area infarctions including temporal. The patient admitted cerebral artery distributions. Clinically stable. Continue Eliquis and aspirin. 2. Hypercoagulable state. Seen by Dr. Jefferson. Continue current anticoagulant therapy. Factor X is still pending. Further treatment depending on the result of the tests. The patient is going for transesophageal echocardiography, family agreed, in the morning to rule out any embolic source from the cardiac or aortic area. 3. Generalized weakness, left-sided weakness. We will start getting physical therapy. Continue current therapy. Follow up clinically. . Continue current medications, aspirin, Eliquis, Benadryl, folic acid, Protonix, intravenous fluid 150 mL, and Tylenol. Rudolph Lopez MD
--- NOTE | 2018-12-19 06:46 | CP.PCM.PN ---
Subjective - Date & Time of Evaluation Date of Evaluation: 12/19/18 Time of Evaluation: 06:15 - Subjective Subjective: No distress,Lying in bed,awake, for JOSEPHINE today Reason for consultation and follow up: Cardiac evaluation, admitted for stroke, on Eliquis, history of Factor V Leiden deficiency, DVT Seen and examined by me and Dr. Retana Objective - Vital Signs/Intake and Output Vital Signs (last 24 hours): Temp Pulse Resp BP Pulse Ox 98.6 F 53 L 20 123/90 97 12/19/18 00:01 12/19/18 02:00 12/19/18 00:01 12/19/18 00:01 12/19/18 00:01 Intake and Output: 12/18/18 12/19/18 18:59 06:59 Intake Total 1020 Balance 1020 - Medications Medications: Current Medications Acetaminophen (Tylenol 325mg Tab) 650 mg PO Q6H PRN PRN Reason: Fever >100.4 F Last Admin: 12/18/18 21:46 Dose: 650 mg Apixaban (Eliquis) 5 mg PO Q12 [facility]; Protocol Last Admin: 12/18/18 21:43 Dose: 5 mg Aspirin (Aspirin) 325 mg PO DAILY [facility] Last Admin: 12/18/18 09:27 Dose: 325 mg Diphenhydramine HCl (Benadryl) 25 mg PO HS PRN PRN Reason: Insomnia Last Admin: 12/18/18 23:04 Dose: 25 mg Folic Acid (Folic Acid) 1 mg PO DAILY [facility] Last Admin: 12/18/18 09:27 Dose: 1 mg Sodium Chloride (Sodium Chloride 0.9%) 1,000 mls @ 100 mls/hr IV .Q10H [facility] Last Admin: 12/16/18 21:55 Dose: 100 mls/hr Pantoprazole Sodium (Protonix Ec Tab) 40 mg PO 0600 [facility] Last Admin: 12/18/18 06:07 Dose: 40 mg - Labs Labs: 12/16/18 06:00 12/16/18 06:00 PT 15.2 SECONDS (9.4-12.5) H 12/15/18 12:42 INR 1.35 12/15/18 12:42 APTT 44.4 Seconds (26.9-38.3) H 12/15/18 12:42 - Constitutional Appears: Non-toxic, No Acute Distress - Head Exam Head Exam: NORMAL INSPECTION, NORMOCEPHALIC - Eye Exam Eye Exam: Normal appearance Pupil Exam: NORMAL ACCOMODATION - ENT Exam ENT Exam: Mucous Membranes Moist, Normal Exam - Respiratory Exam Respiratory Exam: Clear to Ausculation Bilateral, NORMAL BREATHING PATTERN - Cardiovascular Exam Cardiovascular Exam: Bradycardia, +S1, +S2 - GI/Abdominal Exam GI & Abdominal Exam: Soft, Normal Bowel Sounds - Extremities Exam Extremities Exam: Full ROM, Normal Capillary Refill - Neurological Exam Neurological Exam: Alert, Awake, Oriented x3 - Psychiatric Exam Psychiatric exam: Normal Affect, Normal Mood - Skin Skin Exam: Dry, Normal Color, Warm Assessment and Plan - Assessment and Plan (Free Text) Assessment: A 28 years old male who came in to the ER due to complaining of left arm weakness, left facial droop, drooling and slurred speech 20 minutes prior to arrival.Per the patient's mother, the patient has similar presentation last week at [facility] where CT scan of head was unremarkable and was dischar ged and to continue Eliquis. History of Factor V Leiden deficiency ( on Eliquis), pulmonary embolism, DVT, TIA. Cardiac consult was called for evaluation of tachycardia and Eliquis for recurrent stroke. CT scan of head showed there is an area of hypodensity in the right parietal and posterior temporal lobe consistent with acute or sub acute infarct.This measures 2.5cm to 5cm. No evidence of hemorrhage. Neurologist was called but no TPA given. patient in on Eliquis. Repeat CT of head done yesterd ay, unchanged from previous study. Echo done and showed LVEF 64%, trace mitral and tricuspid regurgitation. No PFO. Neuro on consult. Hematology on consult. Thyroid scan unremarkable. Carotid studies showed 20-39% bilateral proximal ICA stenosis. Feels okay. For JOSEPHINE today. NPO post midnight. On Eliquis for anticoagulation probably may need to switch to Coumadin for anticoagulation. Plan: For JOSEPHINE today to rule out PFO No distress Heart rate controlled Continue current treatment Eliquis 5 mg BID, may probably switch to Coumadin Will reevaluate post JOSEPHINE Neuro on consult Hematology on consult Will follow up Plan and treatment discussed with Dr. Retana
[2018-12-19] MEDS: Pantoprazole 40 mg EC Tab PO SCH (06:59)
--- NOTE | 2018-12-19 07:09 | CP.PCM.PN ---
<Ramón Rodrigues - Last Filed: 12/19/18 14:05> Subjective - Date & Time of Evaluation Date of Evaluation: 12/19/18 Time of Evaluation: 07:25 - Subjective Subjective: Ramón Rodrigues DO, PGY-2: Neurology Progress Note for Dr. Johnson Patient was seen and examined at bedside. He endorsed no complaints. He was getting ready to go for JOSEPHINE. Case was also discussed with e learning developer, Dr. Retana. Patient endorsed positional headache. Repeat MRI of brain ordered to ensure no new developments. Otherwise, no adverse events noted. Objective - Vital Signs/Intake and Output Vital Signs (last 24 hours): Temp Pulse Resp BP Pulse Ox 98.6 F 53 L 20 123/90 97 12/19/18 00:01 12/19/18 02:00 12/19/18 00:01 12/19/18 00:01 12/19/18 00:01 Intake and Output: 12/19/18 12/19/18 06:59 18:59 Intake Total 1020 Balance 1020 - Medications Medications: Current Medications Acetaminophen (Tylenol 325mg Tab) 650 mg PO Q6H PRN PRN Reason: Fever >100.4 F Last Admin: 12/18/18 21:46 Dose: 650 mg Apixaban (Eliquis) 5 mg PO Q12 [facility]; Protocol Last Admin: 12/18/18 21:43 Dose: 5 mg Aspirin (Aspirin) 325 mg PO DAILY [facility] Last Admin: 12/18/18 09:27 Dose: 325 mg Diphenhydramine HCl (Benadryl) 25 mg PO HS PRN PRN Reason: Insomnia Last Admin: 12/18/18 23:04 Dose: 25 mg Folic Acid (Folic Acid) 1 mg PO DAILY [facility] Last Admin: 12/18/18 09:27 Dose: 1 mg Sodium Chloride (Sodium Chloride 0.9%) 1,000 mls @ 100 mls/hr IV .Q10H [facility] Last Admin: 12/16/18 21:55 Dose: 100 mls/hr Pantoprazole Sodium (Protonix Ec Tab) 40 mg PO 0600 [facility] Last Admin: 12/19/18 06:59 Dose: 40 mg - Labs Labs: 12/16/18 06:00 12/16/18 06:00 PT 15.2 SECONDS (9.4-12.5) H 12/15/18 12:42 INR 1.35 12/15/18 12:42 APTT 44.4 Seconds (26.9-38.3) H 12/15/18 12:42 - Constitutional Appears: Well, Non-toxic - Head Exam Head Exam: ATRAUMATIC, NORMOCEPHALIC - Eye Exam Eye Exam: EOMI, Normal appearance - ENT Exam ENT Exam: Mucous Membranes Moist, Normal Oropharynx - Neck Exam Neck Exam: Normal Inspection - Respiratory Exam Respiratory Exam: NORMAL BREATHING PATTERN. absent: Accessory Muscle Use - Cardiovascular Exam Cardiovascular Exam: RRR, +S1, +S2 - GI/Abdominal Exam GI & Abdominal Exam: Soft, Normal Bowel Sounds - Extremities Exam Extremities Exam: Normal Inspection. 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 Patient was not a candidate for tPA due to taking Eliquis. MRI of brain shows large acute infarct in the distribution of the right middle cerebral artery involving the right frontal, temporal and parietal lobes. 1) Acute stroke in patient with Factor V Leiden - MRI reports there is a large acute infarct in the distribution of the right middle cerebral artery involving the right frontal, temporal and parietal lobes. The infarct is also visible on T2 and FLAIR images. - Transthoracic Echocardiogram with bubble study does not comment on evidence of PFO or thrombus - Transesophageal Echocardiogram reports normal chamber Size. Good LV Fx, No thrombus, Intermittent PFO with left to right Shunt ONLY by color Flow, NO right to left shunt by Bubble - carotid duplex reports 20-39% proximal Internal Carotid Artery stenosis - PT/OT/Speech therapy - Hematology consulted, Dr. Jefferson - Factor V activity in normal range, full hypercoaguable work-up pending - Pradaxa 150 mg BID starting today - Aspirin 324(5) mg daily - Repeat MRI of brain ordered to ensure no new developments Physical therapy should focus on left visual field, left sided strength and left sided neglect Patient to follow up with Dr. Johnson in the office in one month Case was reviewed and discussed with attending physician, Dr. Johnson <LeobardoSerafinanna - Last Filed: 12/19/18 14:26> Objective - Vital Signs/Intake and Output Vital Signs (last 24 hours): Temp Pulse Resp BP Pulse Ox 98.2 F 75 18 120/82 99 12/19/18 12:49 12/19/18 12:49 12/19/18 12:49 12/19/18 12:49 12/19/18 10:00 Intake and Output: 12/19/18 12/19/18 06:59 18:59 Intake Total 1680 735 Output Total 4 4 Balance 1676 731 - Medications Medications: Current Medications Acetaminophen (Tylenol 325mg Tab) 650 mg PO Q6H PRN PRN Reason: Fever >100.4 F Last Admin: 12/18/18 21:46 Dose: 650 mg Aspirin (Aspirin) 325 mg PO DAILY [facility] Last Admin: 12/19/18 10:59 Dose: 325 mg Dabigatran (Pradaxa) 150 mg PO BID [facility]; Protocol Diphenhydramine HCl (Benadryl) 25 mg PO HS PRN PRN Reason: Insomnia Last Admin: 12/18/18 23:04 Dose: 25 mg Folic Acid (Folic Acid) 1 mg PO DAILY [facility] Last Admin: 12/19/18 10:59 Dose: 1 mg Pantoprazole Sodium (Protonix Ec Tab) 40 mg PO 0600 [facility] Last Admin: 12/19/18 06:59 Dose: 40 mg - Labs Labs: 12/16/18 06:00 12/19/18 06:30 PT 15.2 SECONDS (9.4-12.5) H 12/15/18 12:42 INR 1.35 12/15/18 12:42 APTT 44.4 Seconds (26.9-38.3) H 12/15/18 12:42 Assessment and Plan - Assessment and Plan (Free Text) Assessment: All medical record entries made by the Resident were at my direction and personally dictated by me. I have reviewed the chart and agree that the record accurately reflects my personal performance of the history, physical exam, medical decision making, and the department course for this patient. I have also personally directed, reviewed, and agree with the discharge instructions and disposition. Mr. Franco is ready for rehabm stroke workup complete and our assessment determining that pradaxa with aspirin will be a good choice. However, he has a new headache which is concerning. Therefore we are ordering a repeat MRI Brain to rule out new stroke before he goes to rehab at [facility]. Follow up with dr. johnson/yoselin and with rosa. Dr. johnson
[2018-12-19 07:31] LABS: BLOOD UREA NITROGEN 10 mg/dL (7-21); CALCIUM 9.2 mg/dL (8.4-10.5); GFR NON-AFRICAN AMERICAN > 60
--- NOTE | 2018-12-19 07:52 | CP.PCM.PN ---
<Yadiel Alcala - Last Filed: 12/19/18 07:45> Subjective - Date & Time of Evaluation Date of Evaluation: 12/18/18 Time of Evaluation: 09:00 - Subjective Subjective: Neurology progress note for Dr. Leobardo Alcala PGY - 2 Patient seen and examined at bedside. No acute overnight events. Patient reports better movement and improvement with his left sided weakness. Objective - Vital Signs/Intake and Output Vital Signs (last 24 hours): Temp Pulse Resp BP Pulse Ox 98.6 F 53 L 20 123/90 97 12/19/18 00:01 12/19/18 02:00 12/19/18 00:01 12/19/18 00:01 12/19/18 00:01 Intake and Output: 12/19/18 12/19/18 06:59 18:59 Intake Total 1020 660 Output Total 4 Balance 1020 656 - Medications Medications: Current Medications Acetaminophen (Tylenol 325mg Tab) 650 mg PO Q6H PRN PRN Reason: Fever >100.4 F Last Admin: 12/18/18 21:46 Dose: 650 mg Apixaban (Eliquis) 5 mg PO Q12 [facility]; Protocol Last Admin: 12/18/18 21:43 Dose: 5 mg Aspirin (Aspirin) 325 mg PO DAILY [facility] Last Admin: 12/18/18 09:27 Dose: 325 mg Diphenhydramine HCl (Benadryl) 25 mg PO HS PRN PRN Reason: Insomnia Last Admin: 12/18/18 23:04 Dose: 25 mg Folic Acid (Folic Acid) 1 mg PO DAILY [facility] Last Admin: 12/18/18 09:27 Dose: 1 mg Sodium Chloride (Sodium Chloride 0.9%) 1,000 mls @ 100 mls/hr IV .Q10H [facility] Last Admin: 12/16/18 21:55 Dose: 100 mls/hr Pantoprazole Sodium (Protonix Ec Tab) 40 mg PO 0600 [facility] Last Admin: 12/19/18 06:59 Dose: 40 mg - Labs Labs: 12/16/18 06:00 12/19/18 06:30 PT 15.2 SECONDS (9.4-12.5) H 12/15/18 12:42 INR 1.35 12/15/18 12:42 APTT 44.4 Seconds (26.9-38.3) H 12/15/18 12:42 - Constitutional Appears: Well - Head Exam Head Exam: ATRAUMATIC, NORMAL INSPECTION, NORMOCEPHALIC - Eye Exam Eye Exam: EOMI, Normal appearance, PERRL Pupil Exam: NORMAL ACCOMODATION, PERRL - ENT Exam ENT Exam: Mucous Membranes Moist, Normal Exam - Neck Exam Neck Exam: Full ROM, Normal Inspection. absent: Lymphadenopathy - Respiratory Exam Respiratory Exam: Clear to Ausculation Bilateral, NORMAL BREATHING PATTERN - Cardiovascular Exam Cardiovascular Exam: REGULAR RHYTHM, +S1, +S2. absent: Murmur - GI/Abdominal Exam GI & Abdominal Exam: Soft, Normal Bowel Sounds. absent: Tenderness - Extremities Exam Extremities Exam: Full ROM, Normal Capillary Refill, Normal Inspection. absent: Joint Swelling, Pedal Edema - Back Exam Back Exam: NORMAL INSPECTION - Neurological Exam Neurological Exam: Alert, Awake, CN II-XII Intact, Normal Gait, Oriented x3 - Psychiatric Exam Psychiatric exam: Normal Affect, Normal Mood - Skin Skin Exam: Dry, Intact, Normal Color, Warm Assessment and Plan - Assessment and Plan (Free Text) Assessment: 28 year old male with a past medical history of Factor V Leiden mutation, DVT (18 years of age), PE of Eliquis who presnted with one sudden onset left sided weakness and slurred speech yesterday. Patient was not a candidate for tPA due to taking Eliquis. MRI of brain shows large acute infarct in the distribution of the right middle cerebral artery involving the right frontal, temporal and parietal lobes. Acute Ischemic Right Sided CVA - Initial ECHO showed no PFO - Patient getting JOSEPHINE today - PT/OT/Speech therapy. - Hematology consulted, Dr. Jefferson - carotid duplex reports 20-39% proximal Internal Carotid Artery stenosis - Pending JOSEPHINE results, we will decide if patient should remain on Eliquis, or if he should be changed to Pradexa <Brice Johnson - Last Filed: 12/19/18 14:58> Objective - Vital Signs/Intake and Output Vital Signs (last 24 hours): Temp Pulse Resp BP Pulse Ox 98.2 F 75 18 120/82 99 12/19/18 12:49 12/19/18 12:49 12/19/18 12:49 12/19/18 12:49 12/19/18 10:00 Intake and Output: 12/19/18 12/19/18 06:59 18:59 Intake Total 1680 735 Output Total 4 4 Balance 1676 731 - Medications Medications: Current Medications Acetaminophen (Tylenol 325mg Tab) 650 mg PO Q6H PRN PRN Reason: Fever >100.4 F Last Admin: 12/18/18 21:46 Dose: 650 mg Apixaban (Eliquis) 5 mg PO BID [facility]; Protocol Aspirin (Aspirin) 325 mg PO DAILY [facility] Last Admin: 12/19/18 10:59 Dose: 325 mg Diphenhydramine HCl (Benadryl) 25 mg PO HS PRN PRN Reason: Insomnia Last Admin: 12/18/18 23:04 Dose: 25 mg Folic Acid (Folic Acid) 1 mg PO DAILY [facility] Last Admin: 12/19/18 10:59 Dose: 1 mg Pantoprazole Sodium (Protonix Ec Tab) 40 mg PO 0600 [facility] Last Admin: 12/19/18 06:59 Dose: 40 mg - Labs Labs: 12/16/18 06:00 12/19/18 06:30 PT 15.2 SECONDS (9.4-12.5) H 12/15/18 12:42 INR 1.35 12/15/18 12:42 APTT 44.4 Seconds (26.9-38.3) H 12/15/18 12:42 Assessment and Plan - Assessment and Plan (Free Text) Assessment: Please note that it is of neurology consults opinion that the patient should be on pradaxa and aspirin at this time instead of eloquiss. JOSEPHINE shows no pfo, and at this point multiple coagulation defects are pending from the lab. Patient is ready for discharge to rehab and he will follow up with neurology and heme onc. It is familys decision to go to rehab but if they decide to stay due to heme onc's recommendation, neurology will continue to follow. Thank you Dr. johnson Neurology All medical record entries made by the Resident were at my direction and personally dictated by me. I have reviewed the chart and agree that the record accurately reflects my personal performance of the history, physical exam, medical decision making, and the department course for this patient. I have also personally directed, reviewed, and agree with the discharge instructions and disposition.
[2018-12-19] MEDS ORDERED: Flumazenil 0.1 mg/ml Inj (5ml) IVP ONE (08:29)
[2018-12-19] MEDS ORDERED: Midazolam 2 MG/2 ML VIAL ONE (08:29)
[2018-12-19] MEDS ORDERED: Naloxone 0.4 mg/ml Inj (Adult) ONE (08:30)
[2018-12-19] MEDS ORDERED: Midazolam 2 MG/2 ML VIAL IV ONE ×5 (08:45→08:58)
[2018-12-19] MEDS ORDERED: Sodium Chloride 0.9% 1,000 ML IV SCH (09:27)
--- NOTE | 2018-12-19 09:56 | CP.PCM.PN ---
Subjective - Date & Time of Evaluation Date of Evaluation: 12/19/18 Time of Evaluation: 06:00 - Subjective Subjective: [address] PGY2 Heme/Onc Progress Note for Dr. Jefferson Patient seen and evaluated bedside in AM. No acute issues overnight. Patient states he feels better today. Patient had JOSEPHINE done. Denies any numbness, weakness or any other complains. Objective - Vital Signs/Intake and Output Vital Signs (last 24 hours): Temp Pulse Resp BP Pulse Ox 98.2 F 76 16 122/84 99 12/19/18 09:45 12/19/18 09:45 12/19/18 09:45 12/19/18 09:45 12/19/18 09:45 Intake and Output: 12/19/18 12/19/18 06:59 18:59 Intake Total 1680 735 Output Total 4 4 Balance 1676 731 - Medications Medications: Current Medications Acetaminophen (Tylenol 325mg Tab) 650 mg PO Q6H PRN PRN Reason: Fever >100.4 F Last Admin: 12/18/18 21:46 Dose: 650 mg Apixaban (Eliquis) 5 mg PO Q12 CATARINO; Protocol Last Admin: 12/18/18 21:43 Dose: 5 mg Aspirin (Aspirin) 325 mg PO DAILY CATARINO Last Admin: 12/18/18 09:27 Dose: 325 mg Diphenhydramine HCl (Benadryl) 25 mg PO HS PRN PRN Reason: Insomnia Last Admin: 12/18/18 23:04 Dose: 25 mg Folic Acid (Folic Acid) 1 mg PO DAILY CATARINO Last Admin: 12/18/18 09:27 Dose: 1 mg Sodium Chloride (Sodium Chloride 0.9%) 1,000 mls @ 50 mls/hr IV .Q20H CATARINO Stop: 12/19/18 10:00 Pantoprazole Sodium (Protonix Ec Tab) 40 mg PO 0600 CATARINO Last Admin: 12/19/18 06:59 Dose: 40 mg - Labs Labs: 12/16/18 06:00 12/19/18 06:30 PT 15.2 SECONDS (9.4-12.5) H 12/15/18 12:42 INR 1.35 12/15/18 12:42 APTT 44.4 Seconds (26.9-38.3) H 04/22/19 12:42 - Constitutional Appears: Non-toxic, No Acute Distress - Head Exam Head Exam: NORMAL INSPECTION - Eye Exam Eye Exam: EOMI, Normal appearance - ENT Exam ENT Exam: Mucous Membranes Moist - Respiratory Exam Respiratory Exam: Clear to Ausculation Bilateral, NORMAL BREATHING PATTERN - Cardiovascular Exam Cardiovascular Exam: REGULAR RHYTHM - Neurological Exam Neurological Exam: Alert, Awake, Oriented x3 Assessment and Plan - Assessment and Plan (Free Text) Plan: CVA -initial CT Head showed an area of hypodensity in the right parietal and posterior temporal lobe consistent with an acute or subacute infarct, measuring 2.5 x 5 cm. -Neurology Booth following, follow recs -Repeat Head CT: There is a large infarct in the distribution of the right middl e cerebral artery involving the frontal, temporal and parietal lobes. The distribution is unchanged from the recent MRI. There is no evidence of hemorrhage -possible secondary to Factor Leiden -Echo with bubble study negative -JOSEPHINE shows small intermittent PFO, final report pending -Patient will need rehab, will go to [facility] Factor 5 Leiden -homocysteine levels pending -Factor Xa activity within normal range -folic acid 1mg daily -continue to monitor -further hypercoagable workup pending -start pradaxa, DC eliquis -continue full dose aspirin -possible addition of brillinta or plavix, pending workup -carotid US negative -Lower extremity duplex negative -CT of Chest Abdomen and Pelvis: shows some paratracheal lymph nodes 9mm and additional nonspecific mediastinal/prevascular nodes. Sub cm mesenteric and retroperitoneal lymph nodes
[2018-12-19 12:49] VITALS: RESP 18
--- NOTE | 2018-12-19 16:38 | CARD ---
APPROVED REPORT Date of service: 12/19/2018 EXAM: Two-dimensional and M-mode echocardiogram with Doppler and color Doppler. INDICATION R/O PFO Mitral Valve E/A ratio0.0 TDI E/Lateral E'0.0E/Medial E'0.0 Tricuspid Valve TR Peak [id number] [id number] Peak Gr.11mmHg [id number] Reason For Test : Rule out Intracardiac Thrombus ,and PFO PROCEDURE After obtaining informed consent, patient underwent transesophageal echo in the Echo Lab. Type of Sedation : Conscious Sedation Sedation was administered by Dr. carlson. Sedation was achieved with Versed and fentanyl 4mg and 50 mcg intravenously. Transesophageal probe was inserted and advanced into esophagus without difficulty. Echo enhancement indication: R/O Septal defect. Echo enhancement agent administered: Agitated Saline The JSOEPHINE was performed complications. Throughout the procedure, the blood pressure, pulse oximetry, cardiac rhythm, and rate were monitored. The patient tolerated the procedure without adverse effects. Recovery from conscious sedation was uneventful and vital signs were stable. LEFT VENTRICLE The left ventricle is normal size. There is normal left ventricular wall thickness. The left ventricular function is normal.EF-65% There is normal LV segmental wall motion. The left ventricular diastolic function is normal. No left ventricle thrombus noted on this study. There is no ventricular septal defect visualized. There is no left ventricular aneurysm. There is no mass noted in the left ventricle. RIGHT VENTRICLE The right ventricle is normal size. There is normal right ventricular wall thickness. The right ventricular systolic function is normal. ATRIA The left atrium size is normal. The right atrium size is normal. Intermittent Tiny PFO by color Flow ONLy with left to right Shunt ONLY, and No Right to left shunt by bubble study noted. AORTIC VALVE The aortic valve is normal in structure. Trivial AR There is no aortic valvular stenosis. There is no aortic valvular vegetation. MITRAL VALVE The mitral valve leaflets are thickened. There is no evidence of mitral valve prolapse. There is no mitral valve stenosis. Mitral regurgitation is trace to mild. TRICUSPID VALVE The tricuspid valve is normal in structure. There is trace tricuspid regurgitation. There is no tricuspid valve prolapse or vegetation. There is no tricuspid valve stenosis. PULMONIC VALVE The pulmonary valve is normal in structure. Trivial PI There is no pulmonic valvular stenosis. GREAT VESSELS The aortic root is normal in size. The ascending aorta is normal in size. The pulmonary artery is normal. The IVC is normal in size and collapses >50% with inspiration. PERICARDIAL EFFUSION There is no pericardial effusion. There is no pleural effusion. <Conclusion> Normal chamber size. EF-65%. No thrombus noted. Velocity in DAISY >1m/s. No plaque noted in ASC,Arch ,and descending aorta. Intermittent Tiny PFO by color Flow ONLy with left to right Shunt ONLY, and No Right to left shunt by bubble study noted. CC;Drs. Booth/ Brett/ John.
--- NOTE | 2018-12-19 17:08 | CP.PCM.PCO ---
Assessment and Plan - Assessment and Plan (Free Text) Assessment: 1) headache Plan: MRI of brain - Patient refused MRI, stating it would worsen his headache. He was informed that the benefit of the MRI is to see if he is having another stroke. He understood the risk associated with not having the MRI. His family was also present for this discussion.
[2018-12-19 23:09] LABS: HEMOGLOBIN 13.6 g/dL (14.0-18.0); MEAN CELL VOLUME 79.2 fl (80.0-105.0); MEAN CORPUSCULAR HEMOGLOBIN 25.9 pg (25.0-35.0); MEAN CORPUSCULAR HGB CONC 32.7 g/dl (31.0-37.0); MEAN PLATELET VOLUME 10.3 fl (7.0-11.0); RBC 5.25 10^6/uL (3.5-6.1); RED CELL DISTRIBUTION WIDTH 13.2 % (11.5-14.5); WHITE BLOOD COUNT 8.8 10^3/uL (4.5-11.0)
[2018-12-19 23:12] LABS: B2 GLYCOPROTEIN I AB(IGA) <9 SAU (<=20); B2 GLYCOPROTEIN I AB(IGG) <9 SGU (<=20); B2 GLYCOPROTEIN I AB(IGM) <9 SMU (<=20)
[2018-12-20 04:36] LABS: CARDIOLIPIN AB (IGA) <11 APL (<=11); CARDIOLIPIN AB (IGG) <14 GPL (<=14); CARDIOLIPIN AB (IGM) <12 MPL (<=12)
[2018-12-20 06:22] VITALS: BP 109/77; TEMP 98.1; O2SAT 98
[2018-12-20] MEDS: Pantoprazole 40 mg EC Tab PO SCH (06:43)
[2018-12-20] MEDS ORDERED: Pantoprazole 20 mg EC Tab PO SCH (13:09)
--- NOTE | 2018-12-20 13:59 | PN ---
DATE: 12/19/2018 SUBJECTIVE: The patient is stable. No chest pain. No short of breath, status post JOSEPHINE which is negative. The patient is seen by another mental health consultant Neurology, Dr. Darrel Mcgowan and recommendations to continue same treatment, Eliquis plus aspirin. PHYSICAL EXAMINATION: VITAL SIGNS: Temperature 98.5, heart rate 53, blood pressure is 115/76, respiration 18, and saturation 97%. HEAD AND NECK: Normal. No JVD. No thyromegaly. CHEST: Clear bilaterally. CARDIAC: First sound and second sound normal. ABDOMEN: Soft and nontender. EXTREMITIES: No edema. NEUROLOGIC: Facial asymmetry and mild weakness in left upper extremity and lower extremity. LABORATORY STUDIES: Laboratory study shows white count 8.8, hemoglobin 13.6, hematocrit 41.6, and platelet 223. Chemistry; sodium 140, potassium 3.8, chloride 103, bicarb 28, BUN 10, creatinine 0.9, blood sugar 90, and calcium 9.2. IMPRESSION AND PLAN: 1. Acute cerebrovascular accident. Left facial asymmetry and left side weakness. Continue physical therapy. Continue Eliquis plus aspirin. 2. Hypercoagulable state. Continue Eliquis plus aspirin plus folic acid. 3. Weakness. The patient will go for rehabilitation. Continue current therapy. The patient will go to . Discussed the case with Dr. Jefferson, other new consultations. Rudolph Lopez MD
[2018-12-20 16:11] VITALS: PULSE 84
--- NOTE | 2018-12-20 16:58 | PN ---
DATE: 12/20/2018 This is [facility] visit on telemetry. For Dr. Jefferson. SUBJECTIVE: The patient is a 28-year-old male seen sitting up in bed status post CVA with facial droop on the left with severe headache after prodrome approximately 2 weeks where the patient had difficulty while driving, noticing his vision was impaired. He then had positive findings on an MRI with an infarct and right middle cerebral artery, right frontal temporal parietal lobes as per Dr. Booth, neurologist. The patient had a history of DVT and PE with known factor V Leiden and positive findings. He had been on Eliquis, the CVA occurring despite the patient being on Eliquis. At present, he is now feeling stronger. His gait has improved, slurring of speech also improved with his droop also slowly improving as per exam today with recommendation for transfer to [facility] for further definitive rehabilitation. PHYSICAL EXAMINATION: VITAL SIGNS: Temperature 98.1, pulse 70, respirations 18, blood pressure 109/77, pulse ox of 98. HEENT: Mild facial droop to testing of the facial nerves noted. NECK: Supple. HEART: Regular rate. LUNGS: Clear. ABDOMEN: Soft. EXTREMITIES: No edema. SKIN: Warm and dry. NEUROLOGIC: Awake and alert with no speech changes appreciated except for facial asymmetry as noted above. His gait is also measured, however, it was acceptable as per Dr. Booth who was attended at the evaluation with equal new business clerk noted. LABORATORY DATA: The patient's labs was done yesterday. White blood cell count of 8.8. hemoglobin 13.6, hematocrit 41.6, platelet count of 20-23,000. Metabolic panel completely within normal range. He had an immunologic workup done, which was completely within normal range except for SSA antibody, which was positive, but greater than 8, the range is less than 1. This will be followed up as per his primary Dr. Lopez. His coagulation done showed a positive for one copy of factor V Leiden variant with factor V activity normal at 72, factor X value is 125%, which was also within normal range. The patient also had other tests that are pending including an anti-factor XA assay/activity, which was requested to be sent along with antithrombin III activity. Protein C activity, protein S activity, prothrombin gene analysis, which are all pending. The patient is now tolerating a heart healthy, mechanically altered, finely chopped diet. ASSESSMENT AND PLAN: The assessment for this patient is that of cerebrovascular accident with factor V Leiden compromised with history of deep venous thrombosis, pulmonary embolism, on Eliquis with subsequent left facial weakness. The plan for this patient after consultation with Dr. Jefferson, Dr. Lopez, Dr. Booth, and nursing staff is to transfer the patient today to [facility] after further testing was obtained with other tests to be reviewed upon return. There was consideration of changing the patient's medication to Pradaxa. However, after Dr. Jefferson spoke with Dr. Luda Navarro along with two other neurologists, an opinion was then determined that the stroke was not precipitated by the anticoagulation, but due to a different event. At this time, the patient will continue on Eliquis along with an antiplatelet agent, which is aspirin 325 mg on a daily basis. Also, we will give low-dose Lipitor as is also recommended at this time with followup with Dr. Jefferson in the office and with Dr. Lopez and the patient's neurologist after the patient is discharged from [facility]. This is a complex patient with a comprehensive medically necessary and appropriate visit carried out in excess of 90 minutes with the patient's and family members' questions answered to their satisfaction. The patient also was recommended to receive a second MRI of the brain prior to discharge. However, he reported severe headache recurrence with the testing done for the initial MRI and this was then canceled. Michael Franks MD
[2018-12-20 22:02] LABS: PHOSPHATIDYLSERINE AB IGA <20 U/mL (<20); PHOSPHATIDYLSERINE AB IGG <10 U/mL (<10); PHOSPHATIDYLSERINE AB IGM <25 U/mL (<25)
--- NOTE | 2018-12-23 06:04 | DS ---
HISTORY OF PRESENT ILLNESS: The patient was admitted with CVA and left-sided weakness. He was given Eliquis plus aspirin, seen by neurologist and code stroke was called in. CT angio was negative for medial arteries. He had an CT scan and MRI which shows an infarctions on the right parietal-temporal area distributions and frontal distribution consistent with middle cerebral artery occlusion. The patient also had been seen by Hematology consult, Dr. Jefferson; seen by another Neurology consult, Dr. Darrel Mcgowan. The patient stayed on Eliquis plus aspirin; otherwise, stable. PHYSICAL EXAMINATION: VITAL SIGNS: Temperature is 98.1, heart rate 70, blood pressure 107/77, respirations 18, and saturation 98%. HEAD AND NECK: Normal. No JVD. No thyromegaly. CHEST: Clear bilaterally. CARDIAC: First sound and second sound normal. ABDOMEN: Soft and nontender. EXTREMITIES: No edema. NEUROLOGIC: The patient is able to ambulate, going to bathroom. He is weak in left upper extremity and left facial . He is on pureed oral modified diet. LABORATORY DATA: His last laboratory shows white count 8.8, hemoglobin 15.6, hematocrit 41.6, and platelets 223. Chemistry noted for sodium 140, potassium 3.8, chloride 103, bicarb 28, BUN 10, creatinine 0.9, blood sugar 90, and calcium 9.2. repeat TSH came back 3.65 and free T4 of 1.15. IMPRESSION: 1. Acute cerebrovascular accident. 2. Right cerebellar infarctions, middle cerebral artery distributions. 3. Dysphagia. 4. Left-sided weakness. 5. Hypercoagulable state. PLAN: To continue Eliquis 5 mg b.i.d., aspirin 325 mg once a day, Pepcid 40, and folic acid 1 mg. Continue list of medication in rehab; Tylenol, pantoprazole 20 mg at bedtime, and Lipitor 20. Continue current therapy. Follow up with the neurologist, Dr. Darrel Mcgowan in his office. Rudolph Lopez MD
== END 2018-12-20 17:54 | DRG 65 ==
LOC: ED 12:16 → ERH 14:26 → 2RNO 20:34
PROVIDERS: ADMIT Internal Medicine; ATTEND Internal Medicine
PROC: B246ZZ4 Ultrasonography of Right and Left Heart, Transesophageal (ICD-10-PCS; principal; 2018-12-19 08:40)
DX: I63.411 Cerebral infarction due to embolism of right middle cerebral artery (principal); D68.51 Activated protein C resistance; G81.94 Hemiplegia, unspecified affecting left nondominant side; D68.59 Other primary thrombophilia; R41.4 Neurologic neglect syndrome; R29.810 Facial weakness; R47.81 Slurred speech; F12.90 Cannabis use, unspecified, uncomplicated; R29.707 NIHSS score 7; Z79.01 Long term (current) use of anticoagulants; Z86.711 Personal history of pulmonary embolism; Z86.718 Personal history of other venous thrombosis and embolism; K57.30 Diverticulosis of large intestine without perforation or abscess without bleeding; Z86.73 Personal history of transient ischemic attack (TIA), and cerebral infarction without residual deficits; I65.29 Occlusion and stenosis of unspecified carotid artery; E03.9 Hypothyroidism, unspecified; E66.9 Obesity, unspecified; F41.9 Anxiety disorder, unspecified; R13.10 Dysphagia, unspecified; Z79.02 Long term (current) use of antithrombotics/antiplatelets; Z79.82 Long term (current) use of aspirin; Z68.31 Body mass index [BMI] 31.0-31.9, adult